=== PATIENT | male | born 1950 | race Caucasian/White ===

== ENCOUNTER 2017-08-21 10:29 | Emergency (ER) | payer OTHER ==
[~2017-08-21] VITALS: Ht 185.4 cm; Wt 103.9 kg
[~2017-08-21 10:29] MED LIST: PENICILLIN V P500 MG PO
[2017-08-21] MEDS ORDERED: LOPRESSOR25 PO (10:54)
[2017-08-21] MEDS ORDERED: ASPIR 8181 MG PO (10:55)
[2017-08-21] MEDS ORDERED: NORVASC10 MG PO (10:55)
[2017-08-21] MEDS ORDERED: GLUCOTROL5 MG PO (10:55)
[2017-08-21] MEDS ORDERED: ZESTORETIC 20-1 EAC3 PO (10:56)
[2017-08-21] MEDS ORDERED: KEFLEX500 M1 PO (12:16)
[2017-08-21 12:26] VITALS: BP 161/85
== END 2017-08-21 12:27 | disposition home or self-care (01) ==
LOC: M.ERS 10:29
DX: L72.3 Sebaceous cyst (principal); I10 Essential (primary) hypertension; E11.9 Type 2 diabetes mellitus without complications; Z88.5 Allergy status to narcotic agent; F17.210 Nicotine dependence, cigarettes, uncomplicated

== ENCOUNTER 2020-02-05 12:17 | Inpatient (IN) | payer OTHER ==
[2020-02-05] VITALS (12 sets, daily range): BP systolic 109–135; BP diastolic 59–76
[~2020-02-05] VITALS: Ht 188 cm; Wt 97.5 kg
--- NOTE | ~2020-02-05 | PROC ---
[address] [address] PROCEDURE REPORT Name: CHARLEY MUÑOZ Room: [address] IN M.R.#: [id number] Admission: 02/05/20 Attend Phys: Milagros Armenta Discharge: Date of : 46 Report #: [id number] THIS REPORT FOR: //name// cc: Gregory Hernandez MD, James MD ~ THIS REPORT FOR: //name// For GI report, please see the Provation report in Perceptive 7 content. By: [id number] Records Staff [facility] /TRAVIS
[~2020-02-05 12:17] MED LIST changes: +ASPIR 8181 MG PO; +GLUCOTROL5 MG PO; +KEFLEX500 M1 PO; +METOPROLOL TART25 MG PO; +NORVASC10 MG PO; +ZESTORETIC 20-1 EAC3 PO
[2020-02-05 12:48] LABS: HEMATOCRIT 50.5 % (42.0-52.0); MCH 28.9 pg (26.0-34.0); MCHC 33.5 g/dL (28.0-37.0); MCV 86.2 fL (80.0-100.0); MPV 9.1 fl. (7.2-11.1); NUCLEATED RBCS 0 /100WBC; PLATELET COUNT* 403 thou/uL (150-400); RBC 5.86 mil/uL (4.50-6.00); RDW-CV 14.9 % (10.5-14.5); WBC 20.6 thou/uL (4.0-11.0)
[2020-02-05 13:03] LABS: CALCIUM 9.6 mg/dL (8.5-10.1); CREATININE 1.2 mg/dL (0.6-1.3); POTASSIUM 3.5 mmol/L (3.5-5.1)
[2020-02-05 13:04] LABS: APTT 26.7 Seconds (25.0-31.3); PROTIME 10.3 Seconds (9.20-11.50)
[2020-02-05 13:14] LABS: ALBUMIN 2.3 g/dL (3.4-5.0); TOTAL BILIRUBIN 1.1 mg/dL (<0.1-1.0)
[2020-02-05 13:19] LABS: ABSOLUTE LYMPHOCYTES 1.4 thou/uL (0.8-5.3); ABSOLUTE NEUTROPHILS 18.1 thou/uL (1.6-8.1); ATYPICAL LYMPHS 2 %; PLATELET ESTIMATE ADEQUATE
[2020-02-05] MEDS ORDERED: XTAMPZA ER36 MG PO (14:41)
[2020-02-05 14:44] LABS: URINE BLOOD 1+ (Negative); URINE CLARITY CLEAR; URINE COLOR YELLOW; URINE GLUCOSE-RANDOM 2+ (Negative); URINE LEUKOCYTES-REFLEX NEGATIVE (Negative); URINE NITRITE-REFLEX NEGATIVE (Negative); URINE PROTEIN NEGATIVE (Negative); URINE UROBILINOGEN 0.2 E.U./dl (0.2-1.0)
[2020-02-05 14:47] LABS: ICTOTEST (BILI CONFIRMATORY) Negative (Negative); URINE BILIRUBIN 1+ (Negative); URINE KETONES 3+ (Negative)
[2020-02-05 14:51] LABS: SQUAMOUS 0-3 Few /LPF (0-3)
[2020-02-05 14:52] LABS: URINE WBC-REFLEX 0-5 Rare /HPF (0-5)
[2020-02-05 14:54] LABS: CASTS None Seen /LPF (None Seen); CRYSTALS None Seen /LPF (None Seen); MUCUS None Seen strn/LPF (None Seen); URINE RBC 0-2 Rare /HPF (0-2)
[2020-02-05 14:56] LABS: BE -11.1 mmol/L (-2 to +3); PCO2 VENOUS 29.5 mmHg (41.0-51.0); PO2 VENOUS 49.4 mmHg (35.0-45.0)
[2020-02-05 16:59] LABS: MAGNESIUM 2.3 mg/dL (1.8-2.4); PHOSPHORUS* 3.3 mg/dL (2.5-4.9)
[2020-02-05 18:01] LABS: CALCIUM 8.7 mg/dL (8.5-10.1)
[2020-02-05 21:36] LABS: CALCIUM 8.7 mg/dL (8.5-10.1)
[2020-02-05 21:39] LABS: PHOSPHORUS* 1.7 mg/dL (2.5-4.9)
[2020-02-06] VITALS (13 sets, daily range): BP systolic 121–165; BP diastolic 57–91
[2020-02-06 04:09] LABS: CALCIUM 8.2 mg/dL (8.5-10.1); CREATININE 0.9 mg/dL (0.6-1.3); PHOSPHORUS* 1.9 mg/dL (2.5-4.9); POTASSIUM 3.7 mmol/L (3.5-5.1)
[2020-02-06 08:42] LABS: ALBUMIN 1.9 g/dL (3.4-5.0); CALCIUM 8.6 mg/dL (8.5-10.1); CREATININE 0.9 mg/dL (0.6-1.3); PHOSPHORUS* 1.6 mg/dL (2.5-4.9)
[2020-02-06] MEDS ORDERED: OXYCODONE HCL E10 MG PO (10:37)
[2020-02-06] MEDS ORDERED: ROXICODONE30 MG PO (11:39)
--- NOTE | 2020-02-06 13:00 | EKG ---
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 : 1950 Requested By: Andrey Hamilton Order Number: [id number] MD: Yong Chamberlain Measurements Intervals [place] Rate: 106 P: 44 [place]: 146 QRS: 71 QRSD: 104 T: 60 QT: 371 QTc: 493 Interpretive Statements Sinus tachycardia Probable inferior infarct, age indeterminate Baseline wander in lead(s) III,aVF No previous ECG available for comparison Electronically Signed On 02-06-2020 13:00:24 CDT by Yong Chamberlain [email or web address] <ELECTRONICALLY SIGNED> By: Yong Chamberlain MD, FACC 02/06/20 1300 1227 1227 Yong Chamberlain MD, FAC /EPI
[2020-02-07] VITALS: BP 127/60
[2020-02-07 04:00] VITALS: BP 142/74
[2020-02-07 04:16] LABS: ABSOLUTE LYMPHOCYTES 1.2 thou/uL (0.8-5.3); ABSOLUTE MONOCYTES 0.8 thou/uL (0.0-1.2); ABSOLUTE NEUTROPHILS 6.9 thou/uL (1.6-8.1); BASOPHILS 0.3 %; HEMATOCRIT 44.7 % (42.0-52.0); LYMPHOCYTES 13.2 %; MCH 28.7 pg (26.0-34.0); MCHC 33.5 g/dL (28.0-37.0); MCV 85.8 fL (80.0-100.0); MONOCYTES 9.1 %; MPV 9.2 fl. (7.2-11.1); NUCLEATED RBCS 0 /100WBC; POLYS 77.4 %; RBC 5.21 mil/uL (4.50-6.00); RDW-CV 15.2 % (10.5-14.5)
[2020-02-07 04:39] LABS: PLATELET COUNT* 318 thou/uL (150-400)
[2020-02-07 06:05] LABS: ALBUMIN 1.7 g/dL (3.4-5.0); ALKALINE PHOSPHATASE 82 U/L (46-116); ANION GAP 12 mmol/L (7-16); BUN 16 mg/dL (7-18); CALCIUM 8.3 mg/dL (8.5-10.1); CHLORIDE 100 mmol/L (98-107); CO2 20 mmol/L (21-32); CREATININE 0.8 mg/dL (0.6-1.3); GLUCOSE 223 mg/dL (70-99); PHOSPHORUS* 2.4 mg/dL (2.5-4.9); POTASSIUM 3.6 mmol/L (3.5-5.1); SGOT 25 U/L (15-37); SGPT 28 U/L (30-65); SODIUM 132 mmol/L (136-145); TOTAL BILIRUBIN 0.7 mg/dL (<0.1-1.0); TOTAL PROTEIN 5.4 g/dL (6.4-8.2)
[2020-02-07 07:30] VITALS: BP 126/53
[2020-02-07 10:02] LABS: CHOLESTEROL 65 mg/dL (<200); HDL CHOLESTEROL 15 mg/dL (>40); LDL CHOLESTEROL 33 mg/dL (<100); TC:HDL 4.3 Ratio (Not establshd); TRIGLYCERIDE 86 mg/dL (<150); VLDL 17 mg/dL (<40)
[2020-02-07 10:03] LABS: SERUM ASSESSMENT Clear
[2020-02-07 12:00] VITALS: BP 105/48
--- NOTE | 2020-02-07 14:20 | EKG ---
[place] [address] ELECTROCARDIOGRAM REPORT Name: ALIDACHARLEY LIU Room: [address] ADM IN M.R.#: [id number] Admission: 02/05/20 Attend Phys: Senait Jay Discharge: Date of : 46 Date of Service: 02/06/20 1425 Report #: [id number] THIS REPORT FOR: //name// [facility] Test Date: 2020-02-06 Test Time: 14:25:37 Pat Name: CHARLEY MUÑOZ Department: Room: [address] Gender: M Registration Rep: STUART : 1950 Requested By: Senait Jay Order Number: [id number] Ariane MD: John Jack Measurements Intervals [place] Rate: 118 P: 1 [place]: 145 QRS: 32 QRSD: 86 T: 59 QT: 345 QTc: 484 Interpretive Statements Sinus tachycardia Low voltage, precordial leads Possible inferior and anterior scars Borderline prolonged QT interval Compared to ECG 02/05/2020 12:27:10 Low QRS voltage now present Myocardial infarct finding persists Electronically Signed On 02-07-2020 14:20:07 CDT by Jhon Jack [email or web address] <ELECTRONICALLY SIGNED> By: John Jack MD, [facility] 02/07/20 1420 1425 1425 John Jack MD, FAC /EPI
[2020-02-07 16:00] VITALS: BP 104/53
--- NOTE | 2020-02-07 16:09 | 2DMMODE ---
[place] [address] 2 D/M-MODE ECHOCARDIOGRAM Name: CHARLEY MUÑOZ Room: [address] IN M.R.#: [id number] Admission: 02/05/20 Attend Phys: Senait Jay Discharge: Date of : 46 Date of Service: 02/07/20 1609 Report #: [id number] THIS REPORT FOR: cc: Gregory Hernandez MD, James MD Holkins,John Shields MD [facility] ~ APPROVED REPORT Study performed: 02/07/2020 13:45:03 EXAM: Comprehensive 2D, Doppler, and color-flow Echocardiogram Patient Location: Out-Patient BSA: 2.08 HR: 80 bpm BP: 126/53 mmHg Other Information Study Quality: Fair Indications Abnormal ECG 2D Dimensions IVSd: 10.93 (7-11mm) LVOT Diam: 20.80 (18-24mm) LVDd: 38.10 mm PWd: 11.48 (7-11mm) Ascending Ao: 33.37 (22-36mm) LVDs: 25.05 (25-40mm) Aortic Root: 34.23 mm Volumes Left Atrial Volume (Systole) LA ESV Index: 17.70 mL/m2 Aortic Valve AoV Peak Dave.: 1.01 m/s AO Peak Gr.: 4.12 mmHg LVOT Max P.62 mmHg AO Mean Gr.: 2.50 mmHg LVOT Mean P.56 mmHg LVOT Max V: 1.19 m/s AO V2 VTI: 19.57 cm LVOT Mean V: 0.72 m/s YOLY (VTI): 3.38 cm2 LVOT V1 VTI: 19.48 cm Mitral Valve E/A Ratio: 0.55 [place] [address] 2 D/M-MODE ECHOCARDIOGRAM Name: CHARLEY MUÑOZ Room: [address] IN .R.#: [id number] Admission: 02/05/20 Attend Phys: Senait Jay Discharge: Date of : 46 Date of Service: 02/07/20 1609 Report #: [id number] Decel. Time: 308.72 ms MV E Max Dave.: 0.49 m/s MV PHT: 89.53 ms MVA (PHT): 2.46 cm2 TDI E/Lateral E': 5.44 E/Medial E': 8.17 Medial E' Dave.: 0.06 m/s Lateral E' Dave.: 0.09 m/s Pulmonary Valve PV Peak Dave.: 1.01 m/s PV Peak Gr.: 4.12 mmHg Left Ventricle The left ventricle is normal size. There is normal LV segmental wall motion. There is normal left ventricular wall thickness. Left ventricular systolic function is normal. The left ventricular ejection fraction is within the normal range. LVEF is 60%. Grade I - abnormal relaxation pattern. Right Ventricle The right ventricle is normal size. The right ventricular systolic function is normal. Atria The left atrium size is normal. The right atrium size is normal. Aortic Valve Moderate aortic valve sclerosis. Trace aortic regurgitation. There is no aortic valvular stenosis. Mitral Valve Mild mitral annular calcification. There is no mitral valve regurgitation noted. No evidence of mitral valve stenosis. Tricuspid Valve The tricuspid valve is normal in structure. There is no tricuspid valve regurgitation noted. Pulmonic Valve The pulmonary valve is normal in structure. There is no pulmonic valvular regurgitation. Great Vessels The aortic root is normal in size. IVC [place] [address] 2 D/M-MODE ECHOCARDIOGRAM Name: CHARLEY MUÑOZ Room: [address] IN [facility]#: [id number] Admission: 02/05/20 Attend Phys: Senait Jay Discharge: Date of : 46 Date of Service: 02/07/20 1609 Report #: [id number] collapses >50% with inspiration. Pericardium There is no pericardial effusion. <Conclusion> The left ventricle is normal size. Left ventricular systolic function is normal. The left ventricular ejection fraction is within the normal range. LVEF is 60%. Grade I - abnormal relaxation pattern. The right ventricle is normal size. The left atrium size is normal. Moderate aortic valve sclerosis. Trace aortic regurgitation. There is no aortic valvular stenosis. Mild mitral annular calcification. There is no mitral valve regurgitation noted. No evidence of mitral valve stenosis. The tricuspid valve is normal in structure. IVC is normal in size and collapses >50% with inspiration. There is no pericardial effusion. There is normal LV segmental wall motion. <ELECTRONICALLY SIGNED> By: John Jack MD, FACC 02/07/20 1609 1609 1609 John Jack MD, FACC /INF
[2020-02-07 20:00] VITALS: BP 110/64
[2020-02-08] VITALS (7 sets, daily range): BP systolic 101–149; BP diastolic 53–68
[2020-02-08 04:50] LABS: ABSOLUTE LYMPHOCYTES 1.1 thou/uL (0.8-5.3); ABSOLUTE MONOCYTES 0.9 thou/uL (0.0-1.2); BASOPHILS 0.1 %; EOSINOPHILS 0.3 %; HEMATOCRIT 44.2 % (42.0-52.0); LYMPHOCYTES 8.2 %; MCH 28.9 pg (26.0-34.0); MCHC 33.9 g/dL (28.0-37.0); MCV 85.3 fL (80.0-100.0); MONOCYTES 7.3 %; MPV 9.3 fl. (7.2-11.1); NUCLEATED RBCS 0 /100WBC; PLATELET COUNT* 307 thou/uL (150-400); POLYS 84.1 %; RBC 5.18 mil/uL (4.50-6.00); RDW-CV 14.8 % (10.5-14.5)
[2020-02-08 05:11] LABS: ALBUMIN 1.4 g/dL (3.4-5.0); CALCIUM 8.1 mg/dL (8.5-10.1); CREATININE 0.7 mg/dL (0.6-1.3); POTASSIUM 3.3 mmol/L (3.5-5.1); TOTAL BILIRUBIN 0.5 mg/dL (<0.1-1.0); TOTAL PROTEIN 5.1 g/dL (6.4-8.2)
[2020-02-08 05:20] LABS: PREALBUMIN 6.1 mg/dL (18.0-35.7)
[2020-02-08 05:35] LABS: URINE BILIRUBIN NEGATIVE (Negative); URINE BLOOD NEGATIVE (Negative); URINE CLARITY CLEAR; URINE COLOR YELLOW; URINE GLUCOSE-RANDOM 2+ (Negative); URINE KETONES 1+ (Negative); URINE LEUKOCYTES NEGATIVE (Negative); URINE NITRITE NEGATIVE (Negative); URINE PROTEIN TRACE (Negative); URINE SPECIFIC GRAVITY 1.025 (1.005-1.030); URINE UROBILINOGEN 0.2 E.U./dl (0.2-1.0)
--- NOTE | 2020-02-08 14:37 | CON ---
[address] [address] CONSULTATION Name: CHARLEY MUÑOZ Room: [address] IN M.R.#: [id number] Admission: 02/05/20 Attend Phys: Milagros Armenta Discharge: Date of : 46 Report #: [id number] THIS REPORT FOR: //name// cc: Gregory Hernandez MD, James MD THIS REPORT FOR: //name// CC: Gregory Jay DICTATED BY: Sarika Hernandez [facility] DATE OF SERVICE: 02/08/2020 Please note at the time of this dictation, the patient was seen and physically examined by myself. REASON FOR CONSULTATION: Dysphagia. HISTORY OF PRESENT ILLNESS: This 69-year-old male who presented to the Emergency Room after a 1-day history of increased weakness and after he fell, he noticed a large abscess on his back that started to drain some purulent drainage that was foul smelling, which noted that he had gram-positive cocci and he has been on antibiotics. In talking with the patient, he states he has had a 30-pound weight loss over the last several months. He has had some difficulty with swallowing and pain with both solids and liquids. He states it feels like something is getting stuck in his chest. He has never seen a fabrication inspector or had an EGD or a colonoscopy done before. He states also he has had a loss of appetite and that he does have issues with constipation, which he normally goes about every 4-5 days and does not take anything for that. He denies any nausea, vomiting or any bright red blood or melena in his stools. ALLERGIES: MORPHINE AND FENTANYL. MEDICATIONS: From home include oxycodone, Zestoretic, Norvasc, aspirin, Glucotrol and metoprolol. PAST MEDICAL HISTORY: Hypertension, diabetes. PAST SURGICAL HISTORY: Negative. FAMILY HISTORY: Negative. SOCIAL HISTORY: Continues to smoke daily. Denies any alcohol [place] [address] CONSULTATION Name: CHARLEY MUÑOZ Room: [address] IN [facility]#: [id number] Admission: 02/05/20 Attend Phys: Milagros Armenta Discharge: Date of : 46 Report #: [id number] REVIEW OF SYSTEMS: Twelve-point review of systems is essentially negative except what is mentioned in the HPI. PHYSICAL EXAMINATION: VITAL SIGNS: Temperature 36.4, pulse 96, respirations 16, blood pressure 131/68. HEART: Regular rate and rhythm. LUNGS: Diminished, but clear. ABDOMEN: Soft, positive bowel sounds in all 4 quadrants with no masses or tenderness noted. LABORATORY DATA: Hemoglobin is 15, white count is 13.8, platelets 307. GFR is 111. CRP is 21.2. LFTs, total bilirubin 0.5, alkaline phosphatase 80, ALT 53, and AST is 76. IMPRESSION: 1. Dysphagia. 2. Odynophagia. 3. Weight loss. 4. Decreased appetite. 5. Constipation. 6. Leukocytosis. 7. Tobacco use. PLAN: 1. EGD tomorrow with Dr. Loja. 2. MiraLax daily. 3. Further recommendations to be made after the procedure has been performed. Thank you for allowing us to participate in this patient's care. Please do not hesitate to call with any questions in regard to this consult. Agree with above assessment and plan by Sarika Hernandez. <ELECTRONICALLY SIGNED> By: Zelalem Loja MD 02/08/20 1437 1011 1023Zelalem Loja MD /nt
[2020-02-09 04:00] VITALS: BP 105/63
[2020-02-09 04:45] LABS: ABSOLUTE EOSINOPHILS 0.1 thou/uL (0.0-0.7); ABSOLUTE LYMPHOCYTES 1.3 thou/uL (0.8-5.3); ABSOLUTE MONOCYTES 1.5 thou/uL (0.0-1.2); ABSOLUTE NEUTROPHILS 13.8 thou/uL (1.6-8.1); BASOPHILS 0.3 %; CALCIUM 8.2 mg/dL (8.5-10.1); CREATININE 0.7 mg/dL (0.6-1.3); EOSINOPHILS 0.7 %; HEMATOCRIT 41.4 % (42.0-52.0); HEMOGLOBIN 13.9 gm/dL (14.0-18.0); LYMPHOCYTES 7.8 %; MAGNESIUM 1.5 mg/dL (1.8-2.4); MCH 28.6 pg (26.0-34.0); MCHC 33.5 g/dL (28.0-37.0); MCV 85.4 fL (80.0-100.0); MPV 9.4 fl. (7.2-11.1); NUCLEATED RBCS 0 /100WBC; PHOSPHORUS* 2.7 mg/dL (2.5-4.9); PLATELET COUNT* 330 thou/uL (150-400); POLYS 82.2 %; POTASSIUM 4.2 mmol/L (3.5-5.1); RBC 4.85 mil/uL (4.50-6.00); RDW-CV 15.3 % (10.5-14.5); WBC 16.7 thou/uL (4.0-11.0)
[2020-02-09 08:00] VITALS: BP 107/53
[2020-02-09 11:21] VITALS: BP 103/57
[2020-02-09 16:16] VITALS: BP 111/61
[2020-02-09] MEDS ORDERED: LIPITOR10 MG PO (18:15)
[2020-02-09] MEDS ORDERED: METFORMIN HCL500 M3 PO (18:18)
[2020-02-09] MEDS ORDERED: METFORMIN HCL500 MG PO (18:19)
[2020-02-09 20:10] VITALS: BP 101/57
[2020-02-10] VITALS: BP 106/68
[2020-02-10 04:00] VITALS: BP 104/64
[2020-02-10 05:08] LABS: ABSOLUTE BASOPHILS 0.1 thou/uL (0.0-0.2); ABSOLUTE EOSINOPHILS 0.1 thou/uL (0.0-0.7); ABSOLUTE LYMPHOCYTES 2.1 thou/uL (0.8-5.3); ABSOLUTE MONOCYTES 1.1 thou/uL (0.0-1.2); ABSOLUTE NEUTROPHILS 13.7 thou/uL (1.6-8.1); BASOPHILS 0.3 %; EOSINOPHILS 0.4 %; HEMATOCRIT 47.9 % (42.0-52.0); LYMPHOCYTES 12.3 %; MCH 28.6 pg (26.0-34.0); MCHC 33.2 g/dL (28.0-37.0); MCV 86.3 fL (80.0-100.0); MONOCYTES 6.4 %; MPV 9.2 fl. (7.2-11.1); NUCLEATED RBCS 0 /100WBC; POLYS 80.6 %; RBC 5.55 mil/uL (4.50-6.00); RDW-CV 15.6 % (10.5-14.5)
[2020-02-10 05:37] LABS: HEMOGLOBIN 15.9 gm/dL (14.0-18.0); PLATELET COUNT* 416 thou/uL (150-400)
[2020-02-10 05:57] LABS: ALBUMIN 1.4 g/dL (3.4-5.0); CALCIUM 8.2 mg/dL (8.5-10.1); CREATININE 0.6 mg/dL (0.6-1.3); POTASSIUM 4.1 mmol/L (3.5-5.1); TOTAL BILIRUBIN 0.5 mg/dL (<0.1-1.0); TOTAL PROTEIN 5.5 g/dL (6.4-8.2)
[2020-02-10 08:15] VITALS: BP 137/72
[2020-02-10 12:30] VITALS: BP 122/66
[2020-02-10 15:56] VITALS: BP 109/55
[2020-02-10 21:05] VITALS: BP 129/74
[2020-02-11 00:26] VITALS: BP 111/56
[2020-02-11 03:45] VITALS: BP 125/70
[2020-02-11 06:30] LABS: ALBUMIN 1.3 g/dL (3.4-5.0); CALCIUM 8.1 mg/dL (8.5-10.1); CREATININE 0.8 mg/dL (0.6-1.3); POTASSIUM 4.3 mmol/L (3.5-5.1); TOTAL BILIRUBIN 0.4 mg/dL (<0.1-1.0); TOTAL PROTEIN 4.4 g/dL (6.4-8.2)
[2020-02-11 06:34] LABS: ABSOLUTE EOSINOPHILS 0.1 thou/uL (0.0-0.7); ABSOLUTE LYMPHOCYTES 2.2 thou/uL (0.8-5.3); ABSOLUTE MONOCYTES 1.7 thou/uL (0.0-1.2); ABSOLUTE NEUTROPHILS 11.8 thou/uL (1.6-8.1); BASOPHILS 0.2 %; EOSINOPHILS 0.7 %; HEMATOCRIT 43.9 % (42.0-52.0); HEMOGLOBIN 14.7 gm/dL (14.0-18.0); LYMPHOCYTES 14.1 %; MCH 28.6 pg (26.0-34.0); MCHC 33.4 g/dL (28.0-37.0); MCV 85.8 fL (80.0-100.0); MONOCYTES 10.4 %; MPV 8.5 fl. (7.2-11.1); NUCLEATED RBCS 0 /100WBC; PLATELET COUNT* 469 thou/uL (150-400); POLYS 74.6 %; RBC 5.12 mil/uL (4.50-6.00); RDW-CV 15.6 % (10.5-14.5); WBC 15.8 thou/uL (4.0-11.0)
[2020-02-11 07:30] VITALS: BP 95/50
[2020-02-11 12:06] VITALS: BP 106/63
[2020-02-11 16:58] VITALS: BP 95/57
[2020-02-11 20:24] VITALS: BP 107/50
[2020-02-12] VITALS: BP 101/66
[2020-02-12 04:00] VITALS: BP 107/51
[2020-02-12 04:38] LABS: ABSOLUTE BASOPHILS 0.1 thou/uL (0.0-0.2); ABSOLUTE EOSINOPHILS 0.1 thou/uL (0.0-0.7); ABSOLUTE LYMPHOCYTES 2.2 thou/uL (0.8-5.3); ABSOLUTE MONOCYTES 1.5 thou/uL (0.0-1.2); ABSOLUTE NEUTROPHILS 12.8 thou/uL (1.6-8.1); BASOPHILS 0.4 %; EOSINOPHILS 0.3 %; LYMPHOCYTES 13.2 %; MCH 28.2 pg (26.0-34.0); MCHC 33.3 g/dL (28.0-37.0); MCV 84.7 fL (80.0-100.0); MPV 8.4 fl. (7.2-11.1); NUCLEATED RBCS 0 /100WBC; PLATELET COUNT* 520 thou/uL (150-400); POLYS 77.1 %; RBC 4.96 mil/uL (4.50-6.00); RDW-CV 15.3 % (10.5-14.5); WBC 16.6 thou/uL (4.0-11.0)
[2020-02-12 05:11] LABS: ALBUMIN 1.4 g/dL (3.4-5.0); CALCIUM 7.9 mg/dL (8.5-10.1); CREATININE 0.7 mg/dL (0.6-1.3); MAGNESIUM 1.4 mg/dL (1.8-2.4); POTASSIUM 3.6 mmol/L (3.5-5.1); TOTAL BILIRUBIN 0.5 mg/dL (<0.1-1.0)
[2020-02-12 07:30] VITALS: BP 118/62
[2020-02-12 12:53] VITALS: BP 101/56
[2020-02-12 18:04] VITALS: BP 108/57
[2020-02-12 21:00] VITALS: BP 120/59
[2020-02-13 04:00] VITALS: BP 106/55
[2020-02-13 04:39] LABS: HEMATOCRIT 41.9 % (42.0-52.0); MCH 28.6 pg (26.0-34.0); MCHC 33.5 g/dL (28.0-37.0); MCV 85.4 fL (80.0-100.0); MPV 7.9 fl. (7.2-11.1); RBC 4.9 mil/uL (4.50-6.00); RDW-CV 15.4 % (10.5-14.5); WBC 15.5 thou/uL (4.0-11.0)
[2020-02-13 04:57] LABS: ALBUMIN 1.5 g/dL (3.4-5.0); CREATININE 0.7 mg/dL (0.6-1.3); MAGNESIUM 1.5 mg/dL (1.8-2.4); POTASSIUM 3.7 mmol/L (3.5-5.1); TOTAL BILIRUBIN 0.4 mg/dL (<0.1-1.0); TOTAL PROTEIN 5.3 g/dL (6.4-8.2)
[2020-02-13 07:30] VITALS: BP 111/53
[2020-02-13 11:40] VITALS: BP 100/59
[2020-02-13 16:00] VITALS: BP 104/62
[2020-02-13 20:09] VITALS: BP 112/64
[2020-02-14] VITALS: BP 97/58
[2020-02-14 04:00] VITALS: BP 100/55
[2020-02-14 06:50] LABS: ABSOLUTE BASOPHILS 0.1 thou/uL (0.0-0.2); ABSOLUTE EOSINOPHILS 0.1 thou/uL (0.0-0.7); ABSOLUTE MONOCYTES 1.4 thou/uL (0.0-1.2); ABSOLUTE NEUTROPHILS 11.7 thou/uL (1.6-8.1); BASOPHILS 0.4 %; EOSINOPHILS 0.5 %; HEMOGLOBIN 13.9 gm/dL (14.0-18.0); LYMPHOCYTES 13.1 %; MCH 28.5 pg (26.0-34.0); MCHC 33.1 g/dL (28.0-37.0); MONOCYTES 8.9 %; MPV 7.9 fl. (7.2-11.1); NUCLEATED RBCS 0 /100WBC; PLATELET COUNT* 658 thou/uL (150-400); POLYS 77.1 %; RBC 4.89 mil/uL (4.50-6.00); RDW-CV 15.4 % (10.5-14.5); WBC 15.2 thou/uL (4.0-11.0)
[2020-02-14 07:00] LABS: ALBUMIN 1.5 g/dL (3.4-5.0); CALCIUM 7.7 mg/dL (8.5-10.1); CREATININE 0.8 mg/dL (0.6-1.3); POTASSIUM 4.5 mmol/L (3.5-5.1); TOTAL BILIRUBIN 0.4 mg/dL (<0.1-1.0); TOTAL PROTEIN 5.4 g/dL (6.4-8.2)
[2020-02-14 08:00] VITALS: BP 107/63
[2020-02-14 09:08] LABS: INR 1.1; PROTIME 11.1 Seconds (9.20-11.50)
[2020-02-14 12:35] VITALS: BP 117/56
[2020-02-14 16:57] VITALS: BP 92/54
[2020-02-14 19:50] VITALS: BP 113/51
[2020-02-15] VITALS (7 sets, daily range): BP systolic 97–118; BP diastolic 57–93
[2020-02-15 04:55] LABS: ABSOLUTE EOSINOPHILS 0.1 thou/uL (0.0-0.7); ABSOLUTE LYMPHOCYTES 2.2 thou/uL (0.8-5.3); ABSOLUTE MONOCYTES 1.2 thou/uL (0.0-1.2); ABSOLUTE NEUTROPHILS 12.6 thou/uL (1.6-8.1); BASOPHILS 0.1 %; EOSINOPHILS 0.5 %; HEMATOCRIT 41.8 % (42.0-52.0); LYMPHOCYTES 13.9 %; MCH 28.6 pg (26.0-34.0); MCHC 33.6 g/dL (28.0-37.0); MCV 85.1 fL (80.0-100.0); MONOCYTES 7.6 %; MPV 7.7 fl. (7.2-11.1); NUCLEATED RBCS 0 /100WBC; POLYS 77.9 %; RBC 4.92 mil/uL (4.50-6.00); RDW-CV 15.4 % (10.5-14.5); WBC 16.2 thou/uL (4.0-11.0)
[2020-02-15 04:59] LABS: PLATELET COUNT* 767 thou/uL (150-400)
[2020-02-15 05:16] LABS: ALBUMIN 1.7 g/dL (3.4-5.0); CREATININE 0.8 mg/dL (0.6-1.3); MAGNESIUM 1.4 mg/dL (1.8-2.4); TOTAL BILIRUBIN 0.4 mg/dL (<0.1-1.0); TOTAL PROTEIN 5.7 g/dL (6.4-8.2)
[2020-02-16] VITALS: BP 110/54
[2020-02-16 04:00] VITALS: BP 120/65
[2020-02-16 05:03] LABS: HEMATOCRIT 39.6 % (42.0-52.0); HEMOGLOBIN 13.5 gm/dL (14.0-18.0); MCV 85.3 fL (80.0-100.0); MPV 7.3 fl. (7.2-11.1); RBC 4.65 mil/uL (4.50-6.00); RDW-CV 14.8 % (10.5-14.5); WBC 14.4 thou/uL (4.0-11.0)
[2020-02-16 05:25] LABS: ALBUMIN 1.6 g/dL (3.4-5.0); CALCIUM 7.9 mg/dL (8.5-10.1); CREATININE 0.5 mg/dL (0.6-1.3); MAGNESIUM 1.5 mg/dL (1.8-2.4); TOTAL BILIRUBIN 0.3 mg/dL (<0.1-1.0); TOTAL PROTEIN 5.3 g/dL (6.4-8.2)
[2020-02-16 08:00] VITALS: BP 164/72
[2020-02-16 12:16] VITALS: BP 92/62
[2020-02-16] MEDS ORDERED: FLUCONAZOLE 10100 MG PO (16:34)
[2020-02-16] MEDS ORDERED: PROTONIX40 M2 PO (16:34)
[2020-02-16] MEDS ORDERED: CARAFATE 11 GM/10 M1 PO (16:34)
[2020-02-16] MEDS ORDERED: CEFDINIR300 MG PO (16:57)
[2020-02-16 17:19] VITALS: BP 92/62
--- NOTE | 2020-02-17 16:06 | PATH ---
[address] [address] PATHOLOGY RPT PROCEDURE Name: CHARLEY MEZA Room: [address] IN M.R.#: [id number] Admission: 02/05/20 Date of : 46 Discharge: 02/16/20 Report #: [id number] Path Case #: [id number] [facility] Accession Number: [id number] . 01 Material submitted: . PART A: duodenum - H. PYLORI FOR DUODENAL ULCERS PART B: esophagus - ESOPHAGEAL BIOPSY AT 35CM FOR SEVERE ESOPHAGITIS R/O CANIDIDA . 01 Clinical history: . SEPIS, ALTERED MS, WEAKNESS, ARF, HYPONATREMIA . 02 Diagnosis: A. Tissue submitted as "H. pylori for duodenal ulcers": - Mild nonspecific chronic antral gastritis, negative for Helicobacter pylori organisms, granulomas and dysplasia. . B. Esophageal biopsy at 35 cm (for esophagitis, R/O meenu): - Severe active esophagitis with ulceration compatible with ulcerative reflux, negative for granulomas, viral inclusions, fungal elements and high-grade dysplasia. (VERITO:barrera; 02/17/2020) . Special stain on B: GMS Special stain on A: H. pylori immuno QMS 02/17/2020 1310 [facility] . 02 Electronically signed: . Kevon Kee MD, Pathologist NPI- [id number] . 01 Gross description: . A. The specimen is received in formalin, labeled "Charley Meza, H. pylori biopsy for duodenal ulcers". Received is a segment of pale bahena soft tissue measuring 0.4 cm in maximum dimensions. The specimen is submitted entirely in cassette A1. . B. The specimen is received in formalin, labeled "Charley Meza, esophageal biopsy at 35 cm for esophagitis, R/O meenu". Received are two segments of pale bahena soft tissue ranging in size from 0.3 to 0.7 cm in maximum dimensions. The specimen is submitted entirely in cassette B1. (CAA; 02/15/2020) QAC/QAC 02/15/2020 1012 Local . 02 Pathologist provided ICD-10: K29.50, K20.80, K22.10 . [address] [facility] [place] [address] PATHOLOGY RPT PROCEDURE Name: CHARLEY MEZA Room: [address] DIS IN M.R.#: [id number] Admission: 02/05/20 Date of : 46 Discharge: 02/16/20 Report #: [id number] Path Case #: [id number] Specimen Comment: A courtesy copy of this report has been sent to [phone] Specimen Comment: [phone] Specimen Comment: Report sent to / DR HOSKINS Performed at: [address] [facility] [address], [place], [place] [address] MD Lauri Judd MD Phone: [phone] Performed at: 02 [facility] [address], [place], [place] [address] MD Kevon Kee MD Phone: [phone]
== END 2020-02-16 18:00 | disposition home health service (06) | DRG 871 ==
LOC: M.ERS 12:17 → M.TBA-ER 14:31 → M.ICU 14:31 → M.2W 14:31 → M.ICU 18:43 → M.2W 02-06 13:40
PROVIDERS: Family Medicine; Internal Medicine; Internal Medicine Gastroenterology; Nurse Practitioner Adult Health; Registered Nurse; Surgery; ADMIT Internal Medicine; ATTEND Internal Medicine
DX: A40.9 Streptococcal sepsis, unspecified (principal); E11.10 Type 2 diabetes mellitus with ketoacidosis without coma; N17.0 Acute kidney failure with tubular necrosis; G93.41 Metabolic encephalopathy; E87.1 Hypo-osmolality and hyponatremia; K82.A2 Perforation of gallbladder in cholecystitis; B37.81 Candidal esophagitis; E83.42 Hypomagnesemia; R63.4 Abnormal weight loss; K44.9 Diaphragmatic hernia without obstruction or gangrene; K26.9 Duodenal ulcer, unspecified as acute or chronic, without hemorrhage or perforation; R13.14 Dysphagia, pharyngoesophageal phase; R12 Heartburn; K21.00 Gastro-esophageal reflux disease with esophagitis, without bleeding; L72.0 Epidermal cyst; Z20.828 Contact with and (suspected) exposure to other viral communicable diseases; Z79.84 Long term (current) use of oral hypoglycemic drugs; Z79.899 Other long term (current) drug therapy; Z79.82 Long term (current) use of aspirin; Z88.5 Allergy status to narcotic agent; Z88.8 Allergy status to other drugs, medicaments and biological substances; Z68.27 Body mass index [BMI] 27.0-27.9, adult

== ENCOUNTER 2020-02-21 19:31 | Inpatient (IN) | payer OTHER ==
[~2020-02-21] VITALS: Ht 185.4 cm; Wt 91.2 kg
[~2020-02-21 19:31] MED LIST changes: +CARAFATE 11 GM/10 M1 PO; +CEFDINIR300 MG PO; +FLUCONAZOLE 10100 MG PO; +LIPITOR10 MG PO; +METFORMIN HCL500 M3 PO; +METFORMIN HCL500 MG PO; +OXYCODONE HCL E10 MG PO; +PROTONIX40 M2 PO; +ROXICODONE30 MG PO; +XTAMPZA ER36 MG PO
[2020-02-21 20:17] LABS: ABSOLUTE EOSINOPHILS 0.1 thou/uL (0.0-0.7); ABSOLUTE LYMPHOCYTES 2.3 thou/uL (0.8-5.3); ABSOLUTE MONOCYTES 1.1 thou/uL (0.0-1.2); ABSOLUTE NEUTROPHILS 7.9 thou/uL (1.6-8.1); BASOPHILS 0.2 %; EOSINOPHILS 0.7 %; HEMATOCRIT 39.6 % (42.0-52.0); LYMPHOCYTES 19.9 %; MCHC 32.9 g/dL (28.0-37.0); MONOCYTES 9.9 %; NUCLEATED RBCS 0 /100WBC; PLATELET COUNT* 634 thou/uL (150-400); POLYS 69.3 %; RBC 4.65 mil/uL (4.50-6.00); RDW-CV 15.1 % (10.5-14.5); WBC 11.5 thou/uL (4.0-11.0)
[2020-02-21 20:18] VITALS: BP 75/48
[2020-02-21 20:25] LABS: CALCIUM 8.7 mg/dL (8.5-10.1); CREATININE 2.3 mg/dL (0.6-1.3); POTASSIUM 4.5 mmol/L (3.5-5.1)
[2020-02-21 20:30] LABS: ALBUMIN 2.3 g/dL (3.4-5.0); TOTAL BILIRUBIN 0.3 mg/dL (<0.1-1.0); TOTAL PROTEIN 6.6 g/dL (6.4-8.2)
[2020-02-22] VITALS (13 sets, daily range): BP systolic 93–125; BP diastolic 49–477
[2020-02-22 05:49] LABS: MCHC 32.5 g/dL (28.0-37.0); MCV 86.4 fL (80.0-100.0); MPV 6.8 fl. (7.2-11.1); NUCLEATED RBCS 0 /100WBC; RBC 4.63 mil/uL (4.50-6.00); RDW-CV 15.2 % (10.5-14.5)
[2020-02-22 05:50] LABS: PLATELET COUNT* 447 thou/uL (150-400)
[2020-02-22 06:37] LABS: ABSOLUTE LYMPHOCYTES 1.1 thou/uL (0.8-5.3); ABSOLUTE MONOCYTES 0.3 thou/uL (0.0-1.2); ABSOLUTE NEUTROPHILS 12.6 thou/uL (1.6-8.1); ATYPICAL LYMPHS 1 %; PLATELET ESTIMATE ADEQUATE
[2020-02-22 06:38] LABS: MICROCYTES 1+; TOXIC GRANULATION 2+
[2020-02-22 07:16] LABS: CREATININE 1.9 mg/dL (0.6-1.3); POTASSIUM 4.1 mmol/L (3.5-5.1); TOTAL BILIRUBIN 0.3 mg/dL (<0.1-1.0); TOTAL PROTEIN 6.2 g/dL (6.4-8.2)
[2020-02-22 07:27] LABS: URINE BILIRUBIN NEGATIVE (Negative); URINE BLOOD NEGATIVE (Negative); URINE CLARITY CLEAR; URINE COLOR YELLOW; URINE GLUCOSE-RANDOM NEGATIVE (Negative); URINE KETONES NEGATIVE (Negative); URINE LEUKOCYTES-REFLEX NEGATIVE (Negative); URINE NITRITE-REFLEX NEGATIVE (Negative); URINE PROTEIN NEGATIVE (Negative); URINE SPECIFIC GRAVITY >= 1.030 (1.005-1.030); URINE UROBILINOGEN 0.2 E.U./dl (0.2-1.0)
[2020-02-22 09:47] LABS: CALCIUM 7.7 mg/dL (8.5-10.1); CREATININE 1.7 mg/dL (0.6-1.3); POTASSIUM 3.9 mmol/L (3.5-5.1)
[2020-02-22 09:50] LABS: MAGNESIUM 1.6 mg/dL (1.8-2.4); PHOSPHORUS* 6.3 mg/dL (2.5-4.9)
--- NOTE | 2020-02-22 15:53 | EKG ---
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 : 1950 Requested By: Sandoval Millard Order Number: [id number] MD: John Jack Measurements Intervals [place] Rate: 78 P: 59 ME: 162 QRS: 56 QRSD: 95 T: 78 QT: 395 QTc: 450 Interpretive Statements Sinus rhythm Low voltage, extremity leads Minimal ST elevation, inferior and anterolateral leads, suggest early repolarization Compared to ECG 02/06/2020 14:25:37 ST (T wave) deviation now present Sinus tachycardia no longer present Electronically Signed On 02-22-2020 15:52:53 CDT by John Jack [email or web address] <ELECTRONICALLY SIGNED> By: John Jack MD, FACC 02/22/20 1552 12 12 John Jack MD, FACC /EPI
[2020-02-23] VITALS (7 sets, daily range): BP systolic 79–124; BP diastolic 45–72
[2020-02-23 04:49] LABS: HEMATOCRIT 36.9 % (42.0-52.0); MCH 27.5 pg (26.0-34.0); MCHC 32.6 g/dL (28.0-37.0); MCV 84.4 fL (80.0-100.0); MPV 7.2 fl. (7.2-11.1); RBC 4.37 mil/uL (4.50-6.00); RDW-CV 15.2 % (10.5-14.5); WBC 6.9 thou/uL (4.0-11.0)
[2020-02-23 05:45] LABS: ALBUMIN 1.8 g/dL (3.4-5.0); CALCIUM 7.7 mg/dL (8.5-10.1); CREATININE 1.3 mg/dL (0.6-1.3); MAGNESIUM 1.7 mg/dL (1.8-2.4); POTASSIUM 3.6 mmol/L (3.5-5.1); TOTAL BILIRUBIN 0.2 mg/dL (<0.1-1.0); TOTAL PROTEIN 5.7 g/dL (6.4-8.2)
--- NOTE | 2020-02-23 06:36 | NUR ---
ASSUMED PATIENT CARE AT 1900. PATIENT ALERT AND ORIENTED TIMES FOUR. REFUSES MOST MEDICATIONS, CLAIMING THAT HE CANNOT SWALLOW THEM. INCIDENCE OF LOW BLOOD PRESSURE NOTED. BOLUS GIVEN PER MD ORDERS. BLOOD PRESSURE NORMALIZED. METFORMIN HELD R/T PATIENT BLOOD LUCOSE OF 81. CHECKED AGAIN AT MIDNIGHT AND PATIENT AT 91 WITH NO INTERVENTION NEEDED. JOHN TO STAND AT EDSIDE TO USE URINAL AND PATIENT IS STEADY WITH THIS. DOES NEED HELP TO MANAGE DRAINS WHEN HE GETS BASK INTO BED. COMPLAINTS OF PAIN. ORAL MEDICATION GIVEN PER ORDERS. GUEST SERVICE TEAM LEADER AND COMPLETED CHARTED.
--- NOTE | 2020-02-23 16:57 | NUR ---
PT RESTING IN BED THROUGHOUT SHIFT. CALLS APPROPRIATELY FOR ASSIST TO BR. UP WITH SB ASSIST. TOLERATING PO WELL. MEDS GIVEN FOR CHRONIC PAIN. SISTER AT BS THIS AFTERNOOON AND UPDATED ON PLAN OF CARE
[2020-02-24 00:13] VITALS: BP 125/67
[2020-02-24 05:30] LABS: CALCIUM 8.2 mg/dL (8.5-10.1); CREATININE 1.1 mg/dL (0.6-1.3); MAGNESIUM 1.6 mg/dL (1.8-2.4); POTASSIUM 3.8 mmol/L (3.5-5.1)
--- NOTE | 2020-02-24 06:48 | NUR ---
ASSUMED PT'S CARE THIS PM SHFIT. PT ALERT AND ORIENTED. VSS ON RA. MEDS GIVEN PER EMAR. PAIN MEDS GIVEN THIS SHIFT. ADELAIDA HOSE TO BLE C/O EDEMA. PT HARD OF HEARING. SLEPT WELL THIS SHIFT. STB ASSIST TO BATHROOM. CALL LIGHT WITHIN REACH. HOURLY ROUNDINGS MADE. WILL CONTINUE TO MONITOR.
[2020-02-24 08:15] VITALS: BP 111/58
--- NOTE | 2020-02-24 16:30 | NUR ---
SITTING ON EDGE OF BED. STATED VERY TIRED. PIE ICER MACHINE REPORTED LOW BLOOD SUGAR. JUICE ON BEDSIDE TABLE. ENCOURAGED HIM TO DRINK IT. HE SAID SON LIVES WITH HIM. HE AND PTS SISTER ARE SUPPORTIVE. DID NOT HAVE HOME HEALTH AT DISCHARGE LAST TIME. HE THINKS IT MIGHT BE A GOOD IDEA THIS TIME. HE DID NOT HAVE ANY AGENCY IN MIND. 'JUST SO THEY TAKE MY INSURANCE.' [facility] TAKES PT'S INSURANCE AND GO TO [place]. HE IS AGREEABLE. STATED HE HAS 2 DOGS HE'LL NEED TO PUT UP WHEN THEY COME. CM WILL ARRANGE HH AT DISCHARGE. SHAHAB EOML-[id number]-[phone]/ [phone].
[2020-02-24 16:45] VITALS: BP 118/63
--- NOTE | 2020-02-24 17:46 | NUR ---
PT HAS BEEN IRRITABLE ALL DAY, HE IS UNHAPPY ABOUT THE AMOUNT OF MEDS HE IS TAKING, HE HAS NO TEETH AND HAS A HARD TIME WITH ANY FOODS THAT ARE ROUGH OR CRUNCHY, [place] HIS MEDS HAVE BEEN CRUSHED IN APPLESAUCE OR PUDDING THE PT STATES HE CANNOT TAKE THEM EASILY. HIS BLOOD SUGAR HAS BEEN TO THE LOW SIDE ALL DAY, THIS PM 65 THEN TREATED WITH JUICE WAS 75, HE IS NOT DRINKING JUICE INSTRUCTED. PT GB DRAIN HAS PUT OUT APPROX 1000 ML OF THICK GREEN DRAINAGE, THE BULB DRAIN HAS A SMALL AMOUNT OF SEROUS TO SEROSANGUINOUS DRAINAGE. PT HAS BEEN UNHAPPY BECAUSE WE WAKE HIM UP ALL DAY. VSS, WCTM
[2020-02-24 20:10] VITALS: BP 115/64
--- NOTE | 2020-02-25 04:30 | NUR ---
ASSUMED PT'S CARE THIS PM SHIFT. PT ALERT AND ORIENTED. VOICED BEING FRUSTRATED ABOUT BEING IN THE HOSPITAL. VSS ON RA. MEDS GIVEN PER EMAR. BIG PILLS CRUSHED AND MIXED IN APPLESAUCE PER PT'S REQUEST. PT AMBULATES INDEPENDENTLY. ENCOURAGED TO CALL WHEN NEEDING ASSISTANCE. CALL LIGHT WITHIN REACH. HOURLY ROUNDINGS MADE. WILL CONTINUE TO MONITOR.
[2020-02-25 04:36] LABS: HEMATOCRIT 43.1 % (42.0-52.0); MCH 28.1 pg (26.0-34.0); MCHC 32.5 g/dL (28.0-37.0); MCV 86.5 fL (80.0-100.0); MPV 7.3 fl. (7.2-11.1); RBC 4.98 mil/uL (4.50-6.00); RDW-CV 15.2 % (10.5-14.5); WBC 8.3 thou/uL (4.0-11.0)
[2020-02-25 04:45] LABS: ALBUMIN 2.2 g/dL (3.4-5.0); CALCIUM 8.1 mg/dL (8.5-10.1); CREATININE 0.9 mg/dL (0.6-1.3); MAGNESIUM 1.3 mg/dL (1.8-2.4); POTASSIUM 4.9 mmol/L (3.5-5.1); TOTAL BILIRUBIN 0.2 mg/dL (<0.1-1.0); TOTAL PROTEIN 5.9 g/dL (6.4-8.2)
[2020-02-25 07:45] VITALS: BP 126/65
[2020-02-25] MEDS ORDERED: CEFDINIR300 MG PO (09:04)
[2020-02-25] MEDS ORDERED: HYDROCHLOROTH12.5 M1 PO (09:05)
[2020-02-25 11:00] VITALS: BP 115/64
--- NOTE | 2020-02-25 11:25 | NUR ---
CM INFORMED DURING PRIME ROUNDING OF PLAN TO D/ CPT HOME TODAY WITH PT'S PREVIOUSLY CHOSEN HH LEONIES/NAYAN. CM CONTACTED [facility] TO INFORM OF THE PT'S D/C AND FAXED THE PT'S D/C ORDERS. [facility] NURSE WILL CONTACT THE PT TO ARRANGE A TIME TO VISIT. CM WILL REMAIN AVAILABLE TO ASSIST AND FOLLOW NEEDED. SHAHAB/NAYAN PHONE: [phone] FAX: [phone]
[2020-02-25 12:13] VITALS: BP 115/64
== END 2020-02-25 12:30 | disposition home health service (06) | DRG 441 ==
LOC: M.ERS 19:31 → M.3W 22:44 → M.TBA-ER 22:44 → M.3W 02-22 11:15
PROVIDERS: Emergency Medicine Emergency Medical Services; Internal Medicine; Surgery; ADMIT Family Medicine; ATTEND Family Medicine
PROC: 0F9230Z Drainage of Left Lobe Liver with Drainage Device, Percutaneous Approach (ICD-10-PCS; principal; 2020-02-22)
DX: K75.0 Abscess of liver (principal); N17.0 Acute kidney failure with tubular necrosis; E43 Unspecified severe protein-calorie malnutrition; B37.81 Candidal esophagitis; I95.2 Hypotension due to drugs; E87.70 Fluid overload, unspecified; K27.9 Peptic ulcer, site unspecified, unspecified as acute or chronic, without hemorrhage or perforation; D72.829 Elevated white blood cell count, unspecified; K81.9 Cholecystitis, unspecified; E11.65 Type 2 diabetes mellitus with hyperglycemia; Z20.828 Contact with and (suspected) exposure to other viral communicable diseases; F17.200 Nicotine dependence, unspecified, uncomplicated; Z88.5 Allergy status to narcotic agent; Z88.8 Allergy status to other drugs, medicaments and biological substances; Z68.26 Body mass index [BMI] 26.0-26.9, adult

== ENCOUNTER 2020-02-29 10:57 | Emergency (ER) | payer OTHER ==
[~2020-02-29] VITALS: Ht 188 cm; Wt 81.7 kg
[~2020-02-29 10:57] MED LIST changes: +HYDROCHLOROTH12.5 M1 PO
[2020-02-29 12:35] VITALS: BP 120/63
== END 2020-02-29 12:35 | disposition home or self-care (01) ==
LOC: M.ERS 10:57
DX: S05.32XA Ocular laceration without prolapse or loss of intraocular tissue, left eye, initial encounter (principal); S01.01XA Laceration without foreign body of scalp, initial encounter; I10 Essential (primary) hypertension; E11.9 Type 2 diabetes mellitus without complications; F17.210 Nicotine dependence, cigarettes, uncomplicated; Z90.49 Acquired absence of other specified parts of digestive tract; Z88.6 Allergy status to analgesic agent; Z88.8 Allergy status to other drugs, medicaments and biological substances; W01.0XXA Fall on same level from slipping, tripping and stumbling without subsequent striking against object, initial encounter; Y93.89 Activity, other specified; Y92.89 Other specified places as the place of occurrence of the external cause; Y99.8 Other external cause status

== ENCOUNTER 2020-03-03 11:11 | Emergency (ER) | payer OTHER ==
[~2020-03-03] VITALS: Ht 188 cm; Wt 83.9 kg
[2020-03-03 12:31] VITALS: BP 132/72
== END 2020-03-03 12:33 | disposition home or self-care (01) ==
LOC: M.ERS 11:11
DX: T85.618A Breakdown (mechanical) of other specified internal prosthetic devices, implants and grafts, initial encounter (principal); T85.79XA Infection and inflammatory reaction due to other internal prosthetic devices, implants and grafts, initial encounter; I10 Essential (primary) hypertension; E11.9 Type 2 diabetes mellitus without complications; F17.210 Nicotine dependence, cigarettes, uncomplicated; Z88.6 Allergy status to analgesic agent; Z88.8 Allergy status to other drugs, medicaments and biological substances; Z79.82 Long term (current) use of aspirin; Z79.899 Other long term (current) drug therapy; Y83.8 Other surgical procedures as the cause of abnormal reaction of the patient, or of later complication, without mention of misadventure at the time of the procedure; Y92.89 Other specified places as the place of occurrence of the external cause

== ENCOUNTER 2020-03-07 03:08 | Emergency (ER) | payer OTHER ==
[~2020-03-07] VITALS: Ht 188 cm; Wt 79.4 kg
[2020-03-07 03:50] VITALS: BP 139/68
== END 2020-03-07 03:50 | disposition home or self-care (01) ==
LOC: M.ERS 03:08
DX: S01.81XD Laceration without foreign body of other part of head, subsequent encounter (principal); T85.898A Other specified complication of other internal prosthetic devices, implants and grafts, initial encounter; E11.9 Type 2 diabetes mellitus without complications; I10 Essential (primary) hypertension; F17.210 Nicotine dependence, cigarettes, uncomplicated; Z88.6 Allergy status to analgesic agent; Z88.5 Allergy status to narcotic agent; X58.XXXD Exposure to other specified factors, subsequent encounter; Y83.8 Other surgical procedures as the cause of abnormal reaction of the patient, or of later complication, without mention of misadventure at the time of the procedure; Y92.89 Other specified places as the place of occurrence of the external cause

== ENCOUNTER → 2020-03-07 | Outpatient (CLI) | payer OTHER | END | disposition home or self-care (01) | LOC: M.INT 13:21 | PROVIDERS: ATTEND Surgery | DX: T85.51 Breakdown (mechanical) of gastrointestinal prosthetic devices, implants and grafts (principal); K80.80 Other cholelithiasis without obstruction; E11.10 Type 2 diabetes mellitus with ketoacidosis without coma; I10 Essential (primary) hypertension; F17.210 Nicotine dependence, cigarettes, uncomplicated; Z98.890 Other specified postprocedural states; Z79.899 Other long term (current) drug therapy; X58.XXXD Exposure to other specified factors, subsequent encounter ==

== ENCOUNTER 2020-04-05 17:24 | Inpatient (IN) | payer OTHER ==
[~2020-04-05] VITALS: Ht 172.7 cm; Wt 86.2 kg
[2020-04-05 17:32] VITALS: BP 112/66
[2020-04-05 18:06] LABS: ABSOLUTE EOSINOPHILS 0.1 thou/uL (0.0-0.7); ABSOLUTE LYMPHOCYTES 1.3 thou/uL (0.8-5.3); ABSOLUTE MONOCYTES 1.4 thou/uL (0.0-1.2); ABSOLUTE NEUTROPHILS 7.5 thou/uL (1.6-8.1); BASOPHILS 0.5 %; EOSINOPHILS 0.7 %; HEMATOCRIT 41.6 % (42.0-52.0); HEMOGLOBIN 13.6 gm/dL (14.0-18.0); LYMPHOCYTES 12.3 %; MCH 27.7 pg (26.0-34.0); MCHC 32.8 g/dL (28.0-37.0); MCV 84.5 fL (80.0-100.0); MONOCYTES 13.9 %; MPV 8.4 fl. (7.2-11.1); NUCLEATED RBCS 0 /100WBC; PLATELET COUNT* 274 thou/uL (150-400); POLYS 72.6 %; RBC 4.92 mil/uL (4.50-6.00); RDW-CV 16.1 % (10.5-14.5); WBC 10.3 thou/uL (4.0-11.0)
[2020-04-05 18:11] LABS: CALCIUM 8.3 mg/dL (8.5-10.1); CREATININE 1.8 mg/dL (0.6-1.3); POTASSIUM 3.1 mmol/L (3.5-5.1)
[2020-04-05 18:15] LABS: ALBUMIN 2.6 g/dL (3.4-5.0); TOTAL BILIRUBIN 0.6 mg/dL (<0.1-1.0); TOTAL PROTEIN 6.7 g/dL (6.4-8.2)
[2020-04-05 23:15] VITALS: BP 114/61
[2020-04-06] VITALS: BP 120/70
[2020-04-06 04:00] VITALS: BP 126/68
[2020-04-06 04:26] LABS: ABSOLUTE BASOPHILS 0.1 thou/uL (0.0-0.2); ABSOLUTE EOSINOPHILS 0.1 thou/uL (0.0-0.7); ABSOLUTE LYMPHOCYTES 1.5 thou/uL (0.8-5.3); ABSOLUTE MONOCYTES 1.3 thou/uL (0.0-1.2); ABSOLUTE NEUTROPHILS 6.3 thou/uL (1.6-8.1); BASOPHILS 0.6 %; EOSINOPHILS 1.5 %; HEMATOCRIT 37.2 % (42.0-52.0); HEMOGLOBIN 12.4 gm/dL (14.0-18.0); LYMPHOCYTES 16.6 %; MCH 27.9 pg (26.0-34.0); MCHC 33.4 g/dL (28.0-37.0); MCV 83.5 fL (80.0-100.0); MONOCYTES 13.6 %; MPV 8.4 fl. (7.2-11.1); NUCLEATED RBCS 0 /100WBC; PLATELET COUNT* 238 thou/uL (150-400); POLYS 67.7 %; RBC 4.46 mil/uL (4.50-6.00); RDW-CV 16.1 % (10.5-14.5); WBC 9.3 thou/uL (4.0-11.0)
[2020-04-06 04:50] LABS: CALCIUM 8.2 mg/dL (8.5-10.1); POTASSIUM 3.1 mmol/L (3.5-5.1)
[2020-04-06 04:54] LABS: TOTAL BILIRUBIN 0.6 mg/dL (<0.1-1.0); TOTAL PROTEIN 5.3 g/dL (6.4-8.2)
[2020-04-06 08:08] VITALS: BP 117/69
[2020-04-06 12:00] VITALS: BP 129/66
[2020-04-06 13:16] LABS: URINE BILIRUBIN NEGATIVE (Negative); URINE BLOOD TRACE (Negative); URINE CLARITY CLEAR; URINE COLOR YELLOW; URINE GLUCOSE-RANDOM 3+ (Negative); URINE KETONES NEGATIVE (Negative); URINE LEUKOCYTES-REFLEX NEGATIVE (Negative); URINE NITRITE-REFLEX NEGATIVE (Negative); URINE PROTEIN NEGATIVE (Negative); URINE SPECIFIC GRAVITY 1.015 (1.005-1.030); URINE UROBILINOGEN 0.2 E.U./dl (0.2-1.0)
[2020-04-06 16:13] VITALS: BP 133/71
[2020-04-06 20:00] VITALS: BP 141/67
[2020-04-07] VITALS: BP 109/64
[2020-04-07 04:00] VITALS: BP 103/61
[2020-04-07 04:11] LABS: HEMATOCRIT 35.8 % (42.0-52.0); HEMOGLOBIN 11.6 gm/dL (14.0-18.0); MCH 27.4 pg (26.0-34.0); MCHC 32.5 g/dL (28.0-37.0); MCV 84.4 fL (80.0-100.0); MPV 8.8 fl. (7.2-11.1); RBC 4.25 mil/uL (4.50-6.00); RDW-CV 16.3 % (10.5-14.5)
[2020-04-07 04:15] LABS: ABSOLUTE BASOPHILS 0.1 thou/uL (0.0-0.2); ABSOLUTE EOSINOPHILS 0.3 thou/uL (0.0-0.7); ABSOLUTE LYMPHOCYTES 2.3 thou/uL (0.8-5.3); ABSOLUTE MONOCYTES 1.2 thou/uL (0.0-1.2); ABSOLUTE NEUTROPHILS 5.3 thou/uL (1.6-8.1); EOSINOPHILS 3.2 %; HEMATOCRIT 35.3 % (42.0-52.0); HEMOGLOBIN 11.6 gm/dL (14.0-18.0); LYMPHOCYTES 25.1 %; MCH 27.4 pg (26.0-34.0); MCHC 32.8 g/dL (28.0-37.0); MCV 83.7 fL (80.0-100.0); MPV 8.7 fl. (7.2-11.1); NUCLEATED RBCS 0 /100WBC; PLATELET COUNT* 281 thou/uL (150-400); POLYS 57.7 %; RBC 4.22 mil/uL (4.50-6.00); WBC 9.2 thou/uL (4.0-11.0)
[2020-04-07 04:35] LABS: ALBUMIN 1.8 g/dL (3.4-5.0); CALCIUM 7.7 mg/dL (8.5-10.1); CREATININE 0.8 mg/dL (0.6-1.3); MAGNESIUM 1.7 mg/dL (1.8-2.4); POTASSIUM 3.7 mmol/L (3.5-5.1); TOTAL BILIRUBIN 0.4 mg/dL (<0.1-1.0); TOTAL PROTEIN 5.2 g/dL (6.4-8.2)
[2020-04-07 08:00] VITALS: BP 148/65
[2020-04-07] MEDS ORDERED: GLIPIZIDE 10 MG10 MG PO (08:02)
[2020-04-07] MEDS ORDERED: PIOGLITAZONE15 MG PO (08:02)
[2020-04-07] MEDS ORDERED: LEVOFLOXACIN500 MG PO (08:02)
[2020-04-07 11:41] VITALS: BP 132/78
[2020-04-07 11:53] VITALS: BP 132/78
--- NOTE | 2020-04-08 11:30 | EKG ---
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 : 1950 Requested By: Akua Macario Order Number: [id number] MD: Charley Lui Measurements Intervals [place] Rate: 102 P: 34 MA: 142 QRS: 41 QRSD: 97 T: 38 QT: 399 QTc: 520 Interpretive Statements Sinus tachycardia Atrial premature complexes Inferior infarct, old Prolonged QT interval Compared to ECG 02/21/2020 20:13:50 Atrial premature complex(es) now present Prolonged QT interval now present Sinus rhythm no longer present ST (T wave) deviation no longer present Electronically Signed On 04-08-2020 11:30:25 ACCOUNTING MANAGER CPA by Charley Lui [email or web address] <ELECTRONICALLY SIGNED> By: Charley Lui MD, FACC 04/08/20 1130 174 1743 Charley Lui MD, FAC /EPI
== END 2020-04-07 12:39 | disposition home or self-care (01) | DRG 919 ==
LOC: M.ERS 17:24 → M.TBA-ER 20:10 → M.2W 20:10
PROVIDERS: Internal Medicine; Nurse Practitioner Family; Surgery; ADMIT Internal Medicine; ATTEND Internal Medicine
DX: T85.698A Other mechanical complication of other specified internal prosthetic devices, implants and grafts, initial encounter (principal); E43 Unspecified severe protein-calorie malnutrition; E87.1 Hypo-osmolality and hyponatremia; K81.0 Acute cholecystitis; B37.81 Candidal esophagitis; Z20.828 Contact with and (suspected) exposure to other viral communicable diseases; E87.6 Hypokalemia; I10 Essential (primary) hypertension; F17.210 Nicotine dependence, cigarettes, uncomplicated; E11.65 Type 2 diabetes mellitus with hyperglycemia; Z87.11 Personal history of peptic ulcer disease; Z88.6 Allergy status to analgesic agent; Z88.8 Allergy status to other drugs, medicaments and biological substances; Z80.0 Family history of malignant neoplasm of digestive organs; Z79.82 Long term (current) use of aspirin; Z79.899 Other long term (current) drug therapy; Y83.8 Other surgical procedures as the cause of abnormal reaction of the patient, or of later complication, without mention of misadventure at the time of the procedure; Y92.89 Other specified places as the place of occurrence of the external cause; Z68.28 Body mass index [BMI] 28.0-28.9, adult

== ENCOUNTER → 2020-04-13 | Outpatient (CLI) | payer OTHER ==
[~2020-04-13] MED LIST changes: +GLIPIZIDE 10 MG10 MG PO; +LEVOFLOXACIN500 MG PO; +PIOGLITAZONE15 MG PO
== END ==
LOC: M.LAB 09:10
PROVIDERS: ATTEND Surgery
DX: Z01.812 Encounter for preprocedural laboratory examination (principal); Z20.828 Contact with and (suspected) exposure to other viral communicable diseases; K82.2 Perforation of gallbladder

== ENCOUNTER 2020-04-18 06:42 | Inpatient (IN) | payer OTHER ==
[~2020-04-18] VITALS: Ht 188 cm; Wt 86.2 kg
--- NOTE | ~2020-04-18 | CON ---
[address] [address] CONSULTATION Name: WANDACHARLEY Paco Room: [address] IN M.R.#: [id number] Admission: 04/18/20 Attend Phys: Tala Alba DO Discharge: 04/20/20 Date of : 46 Report #: [id number] THIS REPORT FOR: cc: [facility] - Clinic physician unknown [facility] - Clinic physician unknown ~ Syed Rodriguez DO DATE OF SERVICE: 04/19/2020 REFERRING PHYSICIAN: Tala Alba DO REASON FOR CONSULTATION: Common bile duct stone. IMPRESSION: 1. Abnormal intraoperative cholangiogram demonstrating no filling of the duodenum with suspected common bile duct stones. 2. Status post laparoscopic cholecystectomy on 04/18. 3. Chronic gastric reflux with erosive esophagitis with need for followup of the same. RECOMMENDATIONS: Proceed with upper endoscopy and to evaluate for healing of his erosive esophagitis and ERCP with biliary sphincterotomy and stone extraction. I have discussed the plans with the patient as well and he is agreeable to the same. HISTORY OF PRESENT ILLNESS: The patient is a pleasant 70-year-old white male who was admitted overnight for ERCP after having undergone laparoscopic cholecystectomy with intraoperative cholangiogram yesterday. He had a complicated course with a ruptured gallbladder, which required placement of a cholecystostomy tube with ____ drainage of multiple abscesses around the gallbladder. He is admitted to the hospital to remove any stones that may be within the biliary tree. I was consulted to see the patient at the time of his operation and I recommend the patient be admitted to the hospital for further evaluation and treatment. He is now here for the same. Please see previous consultation by us in March for further details. ALLERGIES: FENTANYL AND MORPHINE. MEDICATIONS AT HOME: Include aspirin, oxycodone, atorvastatin, metformin, Carafate, pantoprazole. PAST MEDICAL AND SURGICAL HISTORY: Remarkable for diabetes, hypertension, erosive esophagitis, recent gallbladder rupture ____ abdominal drains for abscess drainage. He has also [place] [address] CONSULTATION Name: CHARLEY MUÑOZ Room: [address]#: [id number] Admission: 04/18/20 Attend Phys: Tala Alba DO Discharge: 04/20/20 Date of : 46 Report #: [id number] SOCIAL HISTORY: The patient does smoke every day. He does not drink alcohol. FAMILY HISTORY: Negative. PHYSICAL EXAMINATION: GENERAL: Pleasant revealed a 68-year-old gentleman who is awake and alert. CARDIOPULMONARY: Revealed a regular rate and rhythm. LUNGS: Clear. ABDOMEN: Soft. It was tender postoperatively. No rebound or guarding noted. LABORATORY DATA: His laboratory tests from the revealed a white count of 16.0, hemoglobin 11.6, platelet count 600,000, MCV is 85.3 and RDW of 16.6. His sodium 135, potassium 3.8, chloride 99, bicarbonate 30, BUN 12, creatinine 0.8, GFR of 95. Total bilirubin is 1.6, alkaline phosphatase 180, AST 44, ALT 41, albumin 2.3. DISCUSSION: At the present time, the patient is admitted to the hospital for EGD and ERCP. We will proceed with same and make further recommendations thereafter. By: [id number] Rodriguez DO /jann
[2020-04-18 07:42] LABS: ABSOLUTE BASOPHILS 0.1 thou/uL (0.0-0.2); ABSOLUTE EOSINOPHILS 0.2 thou/uL (0.0-0.7); ABSOLUTE LYMPHOCYTES 3.4 thou/uL (0.8-5.3); ABSOLUTE MONOCYTES 0.8 thou/uL (0.0-1.2); ABSOLUTE NEUTROPHILS 6.3 thou/uL (1.6-8.1); BASOPHILS 1.3 %; EOSINOPHILS 2.2 %; HEMATOCRIT 43.1 % (42.0-52.0); HEMOGLOBIN 13.9 gm/dL (14.0-18.0); LYMPHOCYTES 31.2 %; MCH 27.9 pg (26.0-34.0); MCHC 32.3 g/dL (28.0-37.0); MCV 86.2 fL (80.0-100.0); MONOCYTES 7.5 %; NUCLEATED RBCS 0 /100WBC; PLATELET COUNT* 750 thou/uL (150-400); POLYS 57.8 %; RBC 4.99 mil/uL (4.50-6.00); RDW-CV 16.8 % (10.5-14.5)
--- NOTE | 2020-04-18 11:03 | EKG ---
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: : 1950 Requested By: Tala Alba Order Number: [id number] MD: Boone Lui Measurements Intervals [place] Rate: 84 P: -3 SC: 123 QRS: 15 QRSD: 84 T: 54 QT: 400 QTc: 473 Interpretive Statements Sinus rhythm Ventricular premature complex Probable left atrial enlargement Borderline low voltage, extremity leads Compared to ECG 04/05/2020 17:43:59 Ventricular premature complex(es) now present Sinus tachycardia no longer present Atrial premature complex(es) no longer present Prolonged QT interval no longer present Electronically Signed On 04-18-2020 11:03:31 MASH PREPARATORY OPERATOR by Boone Lui [email or web address] <ELECTRONICALLY SIGNED> By: Boone Lui MD, FACC 04/18/20 1103 9 9 Boone Lui MD, FAC /EPI
[2020-04-18 15:15] VITALS: BP 188/100
[2020-04-18 21:24] VITALS: BP 196/115
[2020-04-19] VITALS (7 sets, daily range): BP systolic 95–142; BP diastolic 46–86
[2020-04-19 06:19] LABS: ABSOLUTE BASOPHILS 0.1 thou/uL (0.0-0.2); ABSOLUTE LYMPHOCYTES 1.7 thou/uL (0.8-5.3); ABSOLUTE MONOCYTES 1.5 thou/uL (0.0-1.2); ABSOLUTE NEUTROPHILS 12.8 thou/uL (1.6-8.1); BASOPHILS 0.6 %; HEMATOCRIT 35.7 % (42.0-52.0); LYMPHOCYTES 10.5 %; MCH 27.7 pg (26.0-34.0); MCHC 32.5 g/dL (28.0-37.0); MCV 85.3 fL (80.0-100.0); MONOCYTES 9.2 %; MPV 7.3 fl. (7.2-11.1); NUCLEATED RBCS 0 /100WBC; POLYS 79.7 %; RBC 4.18 mil/uL (4.50-6.00); RDW-CV 16.6 % (10.5-14.5)
[2020-04-19 06:20] LABS: HEMOGLOBIN 11.6 gm/dL (14.0-18.0); PLATELET COUNT* 600 thou/uL (150-400)
[2020-04-19 06:32] LABS: CALCIUM 7.9 mg/dL (8.5-10.1); CREATININE 0.8 mg/dL (0.6-1.3); POTASSIUM 3.8 mmol/L (3.5-5.1)
[2020-04-19 06:36] LABS: ALBUMIN 2.3 g/dL (3.4-5.0); TOTAL BILIRUBIN 1.6 mg/dL (<0.1-1.0); TOTAL PROTEIN 5.8 g/dL (6.4-8.2)
--- NOTE | 2020-04-19 08:45 | OP ---
[address] [address] OPERATIVE REPORT Name: CHARLEY MUÑOZ Room: [address] IN M.R.#: [id number] Admission: 04/18/20 Attend Phys: Tala Alba DO Discharge: Date of : 46 Report #: [id number] THIS REPORT FOR: cc: [facility] - Clinic physician unknown [facility] - Clinic physician unknown ~ Tala Alba DO DATE OF SERVICE: 04/18/2020 PREPROCEDURE DIAGNOSES: Chronic cholecystitis with cholelithiasis with obstruction. POSTPROCEDURE DIAGNOSES: Chronic cholecystitis with cholelithiasis with obstruction. FINDINGS: There was a cholecystostomy tube in place in the right upper quadrant. Gallbladder was hugely distended and full of small stones. Fluoroscopy time was 53 seconds. CBD was hugely dilated, and there appeared to be multiple small stones at the ampulla. No contrast was seen in the duodenum after multiple runs of contrast. SURGEON: Tala Alba DO COSURGEON: Arnulfo Hartley DO, PGY-1. ASSURANCE SENIOR MANAGER INSURANCE: MS Natahniel3. PROCEDURE PERFORMED: Laparoscopic cholecystectomy with intraoperative cholangiogram and surgeon interpretation of images. ANESTHESIA: General endotracheal with local and TAP's block. ESTIMATED BLOOD LOSS: 10 mL. DRAINS: A 15-Polish ANTONIO drain in the right upper quadrant. SPECIMENS: Gallbladder. COMPLICATIONS: None. CONDITION: Stable. DISPOSITION: PACU to the floor. HISTORY OF PRESENT ILLNESS: The patient is a very pleasant 70-year-old gentleman who is well known to our service after a recent extended admission where he suffered a perforation of his gallbladder. On that admission, [place] [address] OPERATIVE REPORT Name: CHARLEY MUÑOZ Room: [address] IN [facility].#: [id number] Admission: 04/18/20 Attend Phys: Tala Alba DO Discharge: Date of : 46 Report #: [id number] underwent a cholecystostomy tube placement and a ANTONIO drain placed for a liver abscess. That hospitalization was quite prolonged due to multiple complications. He was discharged, but has suffered multiple repeat admissions to the hospital and to the emergency room with issues with his cholecystostomy tube and other issues. He is now finally healed well enough to move forward with a cholecystectomy and removal of his cholecystostomy. Risks of surgery were discussed to include bleeding, infection, pain, scar formation, injury to bowel, liver or bile duct, hernia at the incision sites, need for an open procedure and risks of general anesthesia. Of note, the patient was informed that he was high risk for need for an open procedure. The patient understood these risks and elected to proceed. DESCRIPTION OF PROCEDURE: The patient was brought to the operating room. He was laid supine on the operating room table. SCDs were placed on bilateral lower extremities. Ancef was given perioperatively. General endotracheal anesthesia was induced by Anesthesia without difficulty. TAP's blocks were also then provided without issue. Cholecystostomy tube was disconnected from its bag and was taped to the right upper quadrant. Abdomen was prepped and draped in standard sterile fashion. Timeout was performed to verify patient and procedure. A 10 mL of 0.5% Marcaine were injected in the supraumbilical area. Incision was made with 11 blade. Cautery was used for hemostasis. S retractors were used to visualize fascia. Fascia was grasped and elevated between 2 Kochers. Fascia was incised using cautery. Peritoneum was bluntly entered using a Effie clamp. Finger was introduced into the abdomen to assure that there were no keri-incisional adhesions, none were identified. Two stitches of 0 Vicryl placed on the fascia. Gallito trocar was introduced and secured with 0 Vicryl stitches. Abdomen was insufflated. The patient was placed head up and tilted left side down. Camera was introduced and a brief anterior abdominal exploration was undertaken with findings of multiple adhesions in the right upper quadrant. Gallbladder appeared to be hugely distended and completely enrobed in omental adhesions. The cholecystostomy tube could be seen entering the right upper quadrant through the lip of the liver and into the gallbladder. Three 5 mm trocars were then introduced, one in the subxiphoid area and two in the right upper quadrant. We began initially by taking down the multitude of adhesions in the right upper quadrant until the gallbladder could be fully visualized. Again, it was completely enrobed in omental tissue. The omentum was gently distracted down towards the patient's feet and was taken down using a combination of blunt and cautery dissection until the triangle of Calot could be visualized. Peritoneum overlying the triangle of Calot was then incised. Duct and artery were both easily visualized, both were circumferentially dissected free using a [place] dissector. Of note, I could also clearly see the hepatic artery and the common bile duct, these were carefully protected during our dissection. Any tissue posterior to the artery was removed due to the liver plate. This then afforded to critical view. Jones clamp was brought onto the field and the distal portion of the cystic duct was clamped and the cholangiogram catheter was introduced. The [place] [address] OPERATIVE REPORT Name: CHARLEY MUÑOZ Room: [address] IN [facility]#: [id number] Admission: 04/18/20 Attend Phys: Tala Alba DO Discharge: Date of : 46 Report #: [id number] position and C-arm was brought into the field. Intraoperative cholangiogram was then performed utilizing contrast at 50/50 strength with excellent opacification of the ducts. The common bile duct was hugely dilated. Multiple stones could be seen floating near the ampulla despite multiple attempts no contrast was ever able to be flushed into the duodenum. GI happened to be nearby and was able to come into the room and agreed with our findings. The cholangiogram catheter and Jones clamp were then removed. The patient was returned to the head up and left side down position. Duct and artery were then both doubly clipped and ligated. Gallbladder was removed from the liver bed utilizing cautery with some difficulty secondary to an ongoing inflammatory plane and what appeared to be an abscess at the liver bed. Cholecystostomy tube was then cut at the peritoneum. The gallbladder was then placed within an EndoCatch bag. Liver bed was inspected. It was hemostatic. Clips were inspected. They appeared to be intact. There was no bleeding or leakage noted from the area of the clips. Right upper quadrant was then copiously irrigated until clear. A cholecystostomy tube was removed and any scar tissue holding the liver edge to the anterior abdominal wall was removed allowing the liver to fall into its anatomical position. A 15-Polish ANTONIO drain was introduced into the right upper quadrant. Trocars were then all removed under direct visualization. There was no bleeding noted from the peritoneum. Abdomen was completely desufflated. Gallito trocar was removed and EndoCatch bag was removed with specimen intact after extending the fascial incision due to the excessive size of the gallbladder and the multiple stones, multiple small stones were palpated within the gallbladder. This was then handed off for permanent pathology. Kochers were placed on the fascia of our supraumbilical port. Previously placed 0 Vicryl stitches were removed and a 0 Vicryl stitch was placed in [id number] fashion with excellent approximation of the fascia. An additional 10 mL of 0.5% Marcaine were injected in the fascia. This wound was closed in a layered fashion using deep and superficial stitches of 3-0 Vicryl in inverted interrupted fashion. Skin wounds were all closed with 4-0 Monocryl. ANTONIO drain was sutured into place using a 2-0 nylon. Skin wounds were all cleansed and covered with skin glue. Drain was covered with a 4 x 4 and a Tegaderm. The patient was then allowed to awaken from anesthesia, was extubated and transported to the recovery room with no further difficulties. Counts were correct x 2 at the conclusion of the case. <ELECTRONICALLY SIGNED> By: Tala Alba DO 04/19/20 0845 1317 [id number] Alba DO /nt
[2020-04-20 00:34] VITALS: BP 96/52
[2020-04-20 04:18] VITALS: BP 118/63
[2020-04-20 04:28] LABS: ABSOLUTE BASOPHILS 0.1 thou/uL (0.0-0.2); ABSOLUTE EOSINOPHILS 0.1 thou/uL (0.0-0.7); ABSOLUTE LYMPHOCYTES 3.7 thou/uL (0.8-5.3); ABSOLUTE MONOCYTES 1.3 thou/uL (0.0-1.2); ABSOLUTE NEUTROPHILS 9.4 thou/uL (1.6-8.1); BASOPHILS 0.7 %; HEMATOCRIT 28.1 % (42.0-52.0); LYMPHOCYTES 25.3 %; MCH 27.4 pg (26.0-34.0); MCHC 31.8 g/dL (28.0-37.0); MCV 86.1 fL (80.0-100.0); MONOCYTES 8.6 %; MPV 7.1 fl. (7.2-11.1); NUCLEATED RBCS 0 /100WBC; POLYS 64.4 %; RBC 3.26 mil/uL (4.50-6.00); RDW-CV 16.5 % (10.5-14.5); WBC 14.6 thou/uL (4.0-11.0)
[2020-04-20 05:05] LABS: ALBUMIN 2.1 g/dL (3.4-5.0); CALCIUM 7.9 mg/dL (8.5-10.1); CREATININE 0.8 mg/dL (0.6-1.3); MAGNESIUM 1.5 mg/dL (1.8-2.4); PHOSPHORUS* 3.5 mg/dL (2.5-4.9); POTASSIUM 3.6 mmol/L (3.5-5.1); TOTAL BILIRUBIN 0.8 mg/dL (<0.1-1.0); TOTAL PROTEIN 5.2 g/dL (6.4-8.2)
[2020-04-20 05:25] LABS: HEMOGLOBIN 8.9 gm/dL (14.0-18.0); PLATELET COUNT* 403 thou/uL (150-400)
[2020-04-20 07:30] VITALS: BP 115/50
[2020-04-20 09:58] VITALS: BP 115/50
[2020-04-20 10:49] VITALS: BP 115/50
--- NOTE | 2020-04-20 17:07 | PATH ---
[facility] [address] [place] [address] PATHOLOGY RPT PROCEDURE Name: CHARLEY MEZA Room: [address] IN M.R.#: [id number] Admission: 04/18/20 Date of : 46 Discharge: 04/20/20 Report #: [id number] Path Case #: [id number] [facility] Accession Number: [id number] . 01 Material submitted: . gallbladder - GALLBLADDER WITH CONTENTS . 01 Clinical history: . ACUTE CHOLECYSTITIS WITH CHOLELITHIASIS WITH OBSTRUCTION, WITH RUPTURE . 02 Diagnosis: Gallbladder with contents: - Chronic and acute cholecystitis with mural fibrosis and cholelithiasis. - Grossly identified white tubing. . (VERITO:mml; 04/20/2020) QLM 04/20/2020 1257 Local . 02 Electronically signed: . Kevon Kee MD, Pathologist NPI- [id number] . 01 Gross description: . The specimen is received in formalin, labeled "Charley Meza, gallbladder with contents". Received is an intact gallbladder measuring 7.7 x 3.7 x 3.0 cm in greatest dimensions displaying a pink-gutierres, shaggy serosal surface. Opening the specimen reveals a velvety, light brown mucosa with a gallbladder wall thickness of 0.1 cm. Calculi are present displaying a black and multifaceted appearance, and no masses or lesions are noted grossly. Within the lumen of the gallbladder is a curled segment of white catheter tubing measuring 9.9 cm in length by 0.4 cm in diameter. Professional Fee Coder sections, to include the proximal margin, are submitted in cassette A1. A gross photograph of the catheter is taken. ([facility]; 04/19/2020) QA/[facility] 04/20/2020 1247 Local . 02 Pathologist provided ICD-10: K80.12 . 02 CPT . 955141 Specimen Comment: A courtesy copy of this report has been sent to [phone] Specimen Comment: Report sent to Performed at: [address] [facility] [id number] MD Kalia Kerr MD Phone: [phone] Performed at: [address] [place] [address] PATHOLOGY RPT PROCEDURE Name: CHARLEY MEZA Room: [address] IN M.R.#: [id number] Admission: 04/18/20 Date of : 46 Discharge: 04/20/20 Report #: [id number] Path Case #: [id number] [facility] [address] [place] [id number] MD Kevon Kee MD Phone: [phone]
== END 2020-04-20 10:25 | disposition home or self-care (01) | DRG 418 ==
LOC: M.SUR 06:42 → M.TBA 13:07 → M.3W 13:07 → M.SUR 13:08 → M.3W 15:05
PROVIDERS: Internal Medicine Gastroenterology; ADMIT Surgery; ATTEND Surgery
DX: K80.45 Calculus of bile duct with chronic cholecystitis with obstruction (principal); R65.10 Systemic inflammatory response syndrome (SIRS) of non-infectious origin without acute organ dysfunction; E44.0 Moderate protein-calorie malnutrition; B37.81 Candidal esophagitis; K21.00 Gastro-esophageal reflux disease with esophagitis, without bleeding; Z85.07 Personal history of malignant neoplasm of pancreas; Z88.6 Allergy status to analgesic agent; Z79.899 Other long term (current) drug therapy; Z79.82 Long term (current) use of aspirin; Z68.24 Body mass index [BMI] 24.0-24.9, adult

== ENCOUNTER 2020-12-20 08:41 | Inpatient (IN) | payer OTHER ==
[~2020-12-20] VITALS: Ht 188 cm; Wt 78.5 kg
[2020-12-20 08:43] VITALS: BP 109/68
[2020-12-20] MEDS ORDERED: TOPROL XL25 MG PO (08:49)
[2020-12-20] MEDS ORDERED: ASPIRIN EC81 M1 PO (08:49)
[2020-12-20] MEDS ORDERED: LISINOPRIL-HCT1 EAC1 PO (08:50)
[2020-12-20 08:57] LABS: ABSOLUTE BASOPHILS 0.1 thou/uL (0.0-0.2); ABSOLUTE EOSINOPHILS 0.1 thou/uL (0.0-0.7); ABSOLUTE LYMPHOCYTES 1.9 thou/uL (0.8-5.3); ABSOLUTE MONOCYTES 1.7 thou/uL (0.0-1.2); ABSOLUTE NEUTROPHILS 10.6 thou/uL (1.6-8.1); BASOPHILS 0.5 %; EOSINOPHILS 0.8 %; HEMATOCRIT 45.4 % (42.0-52.0); HEMOGLOBIN 15.2 gm/dL (14.0-18.0); LYMPHOCYTES 13.1 %; MCH 28.5 pg (26.0-34.0); MCHC 33.4 g/dL (28.0-37.0); MCV 85.4 fL (80.0-100.0); MONOCYTES 11.6 %; MPV 8.4 fl. (7.2-11.1); NUCLEATED RBCS 0 /100WBC; PLATELET COUNT* 452 thou/uL (150-400); RBC 5.32 mil/uL (4.50-6.00); RDW-CV 15.3 % (10.5-14.5); WBC 14.4 thou/uL (4.0-11.0)
[2020-12-20 09:03] LABS: CALCIUM 9.3 mg/dL (8.5-10.1); POTASSIUM 3.5 mmol/L (3.5-5.1)
[2020-12-20 09:08] LABS: ALBUMIN 2.6 g/dL (3.4-5.0); TOTAL BILIRUBIN 1.1 mg/dL (<0.1-1.0)
--- NOTE | 2020-12-20 11:11 | EKG ---
[place] [address] ELECTROCARDIOGRAM REPORT Name: CHARLEY MUÑOZ Room: [place] [address] ADM IN [facility]#: [id number] Admission: 12/20/20 Attend Phys: Volodymyr Tsai Discharge: Date of : 46 Date of Service: 12/20/20 0944 Report #: [id number] THIS REPORT FOR: //name// [facility] ED Test Date: 2020-12-20 Test Time: 09:44:22 Pat Name: CHARLEY MUÑOZ Department: Room: [facility] Gender: M Practice Or Student Teacher: : 1950 Requested By: Jose G Lazo Order Number: [id number] MD: Charley Lui Measurements Intervals [place] Rate: 106 P: -46 IA: 138 QRS: 47 QRSD: 96 T: 77 QT: 391 QTc: 520 Interpretive Statements Sinus or ectopic atrial tachycardia Inferior infarct, old Prolonged QT interval Compared to ECG 04/18/2020 07:30:24 Prolonged QT interval now present Sinus rhythm no longer present Ventricular premature complex(es) no longer present Electronically Signed On 12-20-2020 11:11:15 CDT by Charley Lui [email or web address] <ELECTRONICALLY SIGNED> By: Charley Lui MD, [facility] 12/20/20 1111 0944 Charley Lui MD, [facility] /EPI
--- NOTE | 2020-12-20 14:14 | CON ---
[address] [address] CONSULTATION Name: CHARLEY MUÑOZ Room: [place] [address] ADM IN [facility].#: [id number] Admission: 12/20/20 Attend Phys: Kaushal Brambila Discharge: Date of : 46 Report #: [id number] THIS REPORT FOR: cc: Meredith Garcia Sarah Anne FNP Blick, David R. MD [facility] ~ DATE OF CONSULTATION: 12/20/2020 CARDIOLOGY CONSULTATION HISTORY OF PRESENT ILLNESS: The patient is a 70-year-old single white male who I was asked to see in the Emergency Room today after he was noted to have an abnormal ECG. The history is obtained from the patient as well as some old records. There are no family members available at this time. The patient has had several hospitalizations here at [facility] in the past. He was admitted here in 02/2020 with sepsis. He had acute kidney injury. He has a long history of diabetes. He had DKA at that time. He had a back abscess. He had cholecystitis and underwent a cholecystectomy. He had EGD and was found to have a hiatal hernia and esophageal ulcers. The patient lives by himself, is not very active at this time. He was admitted here in 02/2020 with lower extremity edema and was felt to have volume overload. He had a liver abscess drained at that time. He also had pneumonia. The patient was again admitted in 03/2020 with abdominal pain. He was felt to be malnourished. The patient states that recently he hurts all over in all of his joints. He has been weak. He has fallen recently. Because of these symptoms, his daughter actually called the ambulance this morning. He was brought here to [facility]. He was noted to have an abnormal ECG and I was asked to see him for further evaluation and treatment. PAST MEDICAL HISTORY: He has had previous cholecystectomy. He has a history of hypertension, diabetes. CURRENT MEDICATIONS: He brought his medications along that included metoprolol tartrate 25 mg a day. He takes aspirin 325 mg a day, metformin 500 mg twice a day, lisinopril/HCTZ 20-12.5 a day, glipizide 10 mg a day. ALLERGIES: He has no known drug allergies. FAMILY HISTORY: Negative for heart disease. SOCIAL HISTORY: He is single, lives by himself in [place], [place]. He smokes half pack of cigarettes. No alcohol abuse. REVIEW OF SYSTEMS: There is no history of stroke, asthma, liver disease. He has had chronic kidney disease. No cancer, no psychiatric illness, [place] [address] CONSULTATION Name: CHARLEY MUÑOZ Room: [address] IN [facility]#: [id number] Admission: 12/20/20 Attend Phys: Kaushal Brambila Discharge: Date of : 46 Report #: [id number] skin condition. PHYSICAL EXAMINATION: GENERAL: Revealed an elderly, frail-appearing male, who appeared in no acute distress. VITAL SIGNS: He had a blood pressure of 110/70, pulse was 70. He was afebrile. HEENT: He was anicteric. Conjunctivae are pink. Mucous membranes are moist. NECK: Veins do not appear distended. CHEST: Clear to auscultation. HEART: Regular rate and rhythm. No murmur. ABDOMEN: Soft. EXTREMITIES: Had no pitting edema. Dorsalis pedis pulse 1+ bilaterally. SKIN: Cool and dry. NEUROLOGIC: He is very slow moving. LABORATORY DATA: ECG showed a sinus rhythm with upsloping ST segment elevation in lead II, III and aVF. There are no reciprocal changes. His workup so far, the patient actually had an echocardiogram done a year ago in 01/2020 that showed an ejection fraction of 60% with aortic sclerosis. His chest x-ray in the Emergency Room today showed normal heart size, infiltrate in the right lower lung. His lab work, sodium 135, BUN 35, creatinine 1.0, glucose 261. His troponin is 0.08. Previous LDL a year ago was only 33. His white blood cell count is 14.4, hemoglobin 15.2. His COVID antigen stat test is not available. IMPRESSION AND RECOMMENDATIONS: 1. Pneumonia. 2. Borderline troponin. No evidence of myocardial infarction. 3. Hypertension. The patient is on a beta ronny, JOVI inhibitor and diuretic. 4. Diabetes mellitus. 5. Tobacco abuse. <ELECTRONICALLY SIGNED> By: Charley Lui MD, [facility] 12/20/20 1414 0935 1214Dgenesis Lui MD, FAC /nt
[2020-12-20 14:49] LABS: CHOLESTEROL 173 mg/dL (<200); HDL CHOLESTEROL 26 mg/dL (>40); LDL CHOLESTEROL 106 mg/dL (<100); TC:HDL 6.7 Ratio (Not establshd); TRIGLYCERIDE 209 mg/dL (<150); VLDL 42 mg/dL (<40)
[2020-12-20 14:51] LABS: SERUM ASSESSMENT Clear
[2020-12-20 15:00] VITALS: BP 163/93
--- NOTE | 2020-12-20 15:36 | EKG ---
[place] [address] ELECTROCARDIOGRAM REPORT Name: CHARLEY MUÑOZ Room: [place] [address] ADM IN [facility].#: [id number] Admission: 12/20/20 Attend Phys: Volodymyr Tsai Discharge: Date of : 46 Date of Service: 12/20/20 1508 Report #: [id number] THIS REPORT FOR: //name// [facility] Test Date: 2020-12-20 Test Time: 15:08:53 Pat Name: CHARLEY MUÑOZ Department: Room: [place] [address] Gender: M Clerical Adjudicator: STEPHANY : 1950 Requested By: Charley Lui Order Number: [id number] MD: Charley Lui Measurements Intervals [place] Rate: 89 P: -44 VT: 146 QRS: 72 QRSD: 103 T: 80 QT: 432 QTc: 526 Interpretive Statements Sinus rhythm Low voltage, precordial leads Nonspecific T abnrm, anterolateral leads Minimal ST elevation, inferior leads Prolonged QT interval Compared to ECG 12/20/2020 09:44:22 rate has slowed Electronically Signed On 12-20-2020 15:35:52 CDT by Charley Lui [email or web address] <ELECTRONICALLY SIGNED> By: Charley Lui MD, FACC 12/20/20 1535 1508 1508 Charley Lui MD, [facility] /EPI
[2020-12-20 16:45] VITALS: BP 144/74
[2020-12-20 16:56] LABS: URINE BLOOD NEGATIVE (Negative); URINE CLARITY CLEAR; URINE COLOR YELLOW; URINE GLUCOSE-RANDOM 2+ (Negative); URINE KETONES 2+ (Negative); URINE LEUKOCYTES NEGATIVE (Negative); URINE NITRITE NEGATIVE (Negative); URINE PROTEIN NEGATIVE (Negative); URINE UROBILINOGEN 0.2 E.U./dl (0.2-1.0)
[2020-12-20 17:00] LABS: ICTOTEST (BILI CONFIRMATORY) Negative (Negative); URINE BILIRUBIN 1+ (Negative)
[2020-12-20] MEDS ORDERED: GLIPIZIDE 10 MG10 MG PO (17:10)
--- NOTE | 2020-12-20 17:19 | NUR ---
PT ADMITTED WITH SEPSIS. PT ORIENTED TO ROOM. WOUND PICS IN CHART. FALL RISK PRECAUTIONS IN PLACE. CALL LIGHT WITHIN REACH.
--- NOTE | 2020-12-20 18:15 | NUR ---
PT REMAINED ALERT AND ORIENTED. PT RESTING IN BED. ACCU CHECKS COMPLETED. Q 2 TURNS INITIATED. FALL RISK PRECAUTIONS IN PLACE. HOURLY ROUNDING COMPLETED. CALL LIGHT WITHIN REACH.
[2020-12-20 20:00] VITALS: BP 137/73
[2020-12-21] VITALS: BP 142/85
[2020-12-21 04:27] LABS: HEMATOCRIT 43.4 % (42.0-52.0); HEMOGLOBIN 14.2 gm/dL (14.0-18.0); MCH 27.9 pg (26.0-34.0); MCHC 32.7 g/dL (28.0-37.0); MCV 85.2 fL (80.0-100.0); RBC 5.1 mil/uL (4.50-6.00); WBC 11.7 thou/uL (4.0-11.0)
[2020-12-21 04:30] VITALS: BP 155/82
[2020-12-21 05:02] LABS: CALCIUM 8.4 mg/dL (8.5-10.1); CREATININE 0.6 mg/dL (0.6-1.3); POTASSIUM 3.2 mmol/L (3.5-5.1)
--- NOTE | 2020-12-21 07:03 | NUR ---
Alert and oriented x 4 but extremely hard of hearing. He is NSR on tyhe monitor. He has open area to L knee and coccyx that are open to air and woundcare are going to see him today. He had hydrocodone for pain x 3 this shift. He states that it doesn't work well. He has voided per urinal. He slept intermittenly.
[2020-12-21 07:50] VITALS: BP 156/80
[2020-12-21 12:00] VITALS: BP 150/89
--- NOTE | 2020-12-21 13:16 | NUR ---
Pt is A&O. Resides at home with son. Per Pt, he is independent. Pt states he has a walker and scooter but does not need to use either at this time. Hx of [facility] HH. No hx of SNF. Pt having falls at home, therapies to lissa, [facility] briefly discussed rehab v snf post dc, Pt adament that he will return home. Therapy evgio ordered. Wound care to see. Anticipate dc in a few days. CM following.
[2020-12-21] MEDS ORDERED: LIPITOR10 MG PO (14:10)
--- NOTE | 2020-12-21 15:50 | 2DMMODE ---
[place] [address] 2 D/M-MODE ECHOCARDIOGRAM Name: WANDACHARLEY Paco Room: [address] IN [facility]#: [id number] Admission: 12/20/20 Attend Phys: Volodymyr Tsai Discharge: Date of : 46 Date of Service: 12/21/20 1549 Report #: [id number] THIS REPORT FOR: cc: Meredith Garcia Sarah Anne FNP Liston, Michael J. MD [facility] ~ APPROVED REPORT Study performed: 12/21/2020 10:46:34 EXAM: Comprehensive 2D, Doppler, and color-flow Echocardiogram Patient Location: In-Patient Room #: [facility] Status: routine BSA: 2.05 HR: 89 bpm BP: 156/80 mmHg Rhythm: NSR Other Information Study Quality: Adequate Technically limited study due to subcostal views only views obtainable. Indications Abnormal ECG Sepsis 2D Dimensions IVSd: 10.72 (7-11mm) LVOT Diam: 23.45 (18-24mm) LVDd: 46.05 mm PWd: 9.67 (7-11mm) LVDs: 30.06 (25-40mm) Aortic Root: 38.10 mm Pulmonary Valve PV Peak Dave.: 1.28 m/s PV Peak Gr.: 6.53 mmHg Left Ventricle The left ventricle is normal size. There is normal LV segmental wall motion. There is normal left ventricular wall thickness. Left ventricular systolic function is normal. LVEF is 55-60%. This study is not technically sufficient to allow evaluation of the LV diastolic function. [address] [address] 2 D/M-MODE ECHOCARDIOGRAM Name: CHARLEY MUÑOZ Room: [address] IN [facility]#: [id number] Admission: 12/20/20 Attend Phys: Volodymyr Tsai Discharge: Date of : 46 Date of Service: 12/21/20 1549 Report #: [id number] Right Ventricle The right ventricle is normal size. The right ventricular systolic function is normal. Atria The left atrium size is normal. The right atrium size is normal. Aortic Valve Mild aortic valve sclerosis. Trace aortic regurgitation. There is no aortic valvular stenosis. Mitral Valve The mitral valve is normal in structure. There is no mitral valve regurgitation noted. No evidence of mitral valve stenosis. Tricuspid Valve The tricuspid valve is normal in structure. Unable to assess PA pressure. Trace tricuspid regurgitation. Pulmonic Valve The pulmonary valve is normal in structure. There is no pulmonic valvular regurgitation. Great Vessels The aortic root is normal in size. IVC is normal in size and collapses >50% with inspiration. Pericardium There is no pericardial effusion. <Conclusion> The left ventricle is normal size. There is normal left ventricular wall thickness. Left ventricular systolic function is normal. LVEF is 55-60%. Mild aortic valve sclerosis. Trace aortic regurgitation. Trace tricuspid regurgitation. IVC is normal in size and collapses >50% with inspiration. <ELECTRONICALLY SIGNED> By: Yong Chamberlain MD, FACC 12/21/20 1549 1549 1549 Yong Chamberlain MD, FACC /INF
--- NOTE | 2020-12-21 15:57 | NUR ---
WOUND NURSE: PATIENT SEEN FOR WOUND ASSESSMENT. PATIENT HAS A CLUSTER OF 3 LESIONS ON THE SACRUM, COCCYX, AND RIGHT BUTTOCK WITHIN A 6.0 X 8.0 CM AREA. EACH PRESENTS WITH A JURADO LEATHERY FIRMLY ATTACHED LEATHERY ESCHAR. THERE IS NO ACTIVE DRAINAGE NOTED. PATIENT ADMITS TO LYING ON HIS BACK TOO MUCH AND STATES HE DEVELOPED THESE AT HOME. CLEANSED WITH SOAP AND WATER, RINSE, THEN PATTED DRY. APPLIED EXUDERM SATIN TO WOUNDED AREA, THEN SECURED IN PLACE USING SURESITE TRANSPARENT DRESSING. PATIENT WITH SCABS ON BILATERAL KNEEDS AND LEFT ARM AND REPORTS THESE ARE FROM A FALL AT HOME. SCABS ARE ALL STABLE SO PLAN TO LEAVE OPEN TO AIR. PATIENT INSTRUCTED ON MEASURES TO PROMOTE HEALING AND PREVENT FURTHER COMPLICATIONS. STATES HE UNDERSTANDS, BUT HE ISN'T FOLLOWING THROUGH ON OFFLOADING BY STAYING OFF HIS BACK.
[2020-12-21 16:00] VITALS: BP 164/81
--- NOTE | 2020-12-21 17:14 | NUR ---
PATIENT RESTING IN BED. PATIENT HAS COMPLAINTS OF GENERALIZED PAIN, TREATED ADEQUATELY WITH MEDICATION. PATIENT IS AFEBRILE. PATIENT SEEN BY [facility] NURSE THIS AFTERNOON. PATIENT HAS IV ANTIBIOTICS INFUSING ORDERED. PATIENT DENIES ANY NEEDS AT THIS TIME. CALL LIGHT WITHIN REACH.
[2020-12-21 20:06] VITALS: BP 173/87
[2020-12-22] VITALS: BP 160/96
--- NOTE | 2020-12-22 01:55 | NUR ---
Patient alert. Denies pain at this time. Slept most of the night. Had an episode of incontinence. Will continue to care.
[2020-12-22 04:13] LABS: HEMATOCRIT 43.9 % (42.0-52.0); HEMOGLOBIN 13.9 gm/dL (14.0-18.0); MCH 27.2 pg (26.0-34.0); MCHC 31.7 g/dL (28.0-37.0); MCV 85.7 fL (80.0-100.0); MPV 8.3 fl. (7.2-11.1); RBC 5.12 mil/uL (4.50-6.00); RDW-CV 15.3 % (10.5-14.5); WBC 14.6 thou/uL (4.0-11.0)
[2020-12-22 04:22] VITALS: BP 152/79
[2020-12-22 04:30] LABS: CALCIUM 7.8 mg/dL (8.5-10.1); CREATININE 0.6 mg/dL (0.6-1.3); POTASSIUM 3.1 mmol/L (3.5-5.1)
[2020-12-22 07:45] VITALS: BP 185/97
--- NOTE | 2020-12-22 10:22 | NUR ---
WOUND NURSE: PATIENT SEEN REGARDING PRESSURE INJURY ADDRESSED YESTERDAY. PATIENT REPORTS HE HAS TRANSPORTATION TO THE WOUND CARE CENTER HERE AT [facility]. PATIENT SCHEDULED TO BE SEEN NEXT FRIDAY AT 08:30 AM.
[2020-12-22 12:11] VITALS: BP 169/90
--- NOTE | 2020-12-22 15:13 | NUR ---
THIS MOTOR COACH DRIVER IS IN AGREEMENT WITH DOCUMENTATION BY ELIANE SCOTT FOR THIS DAY. CHRISTOPHER TADEOT
[2020-12-22 16:07] VITALS: BP 166/96
--- NOTE | 2020-12-22 16:13 | NUR ---
Anticiapte dc in a few days. Therapies to see. Continue to replace K. CM discussed SNF, Pt hestinant but states he will think about it. CM left VM for Pt's son to discuss dispo. Plan home with HH vs SNF
--- NOTE | 2020-12-22 18:16 | NUR ---
PATIENT RESTING IN BED. PATIENT HAS BEEN UP WITH ASSIST OF ONE WITH GAIT BELT TODAY. PATIENT HAS HAD A FEW INCONTINENT EPISODES TODAY OF BOWEL AND BLADDER. PATIENT HAS GOOD APPETITE. PATIENT HAS HAD COMPLAINTS OF GENERALIZED JOINT PAIN, TREATED ADEQUATELY WITH MEDICATION. PATIENT DENIES ANY NEEDS AT THIS TIME. BED ALALRM ON. CALL LIGHT WITHIN REACH.
[2020-12-22 20:11] VITALS: BP 120/85
[2020-12-23 00:42] VITALS: BP 172/80
[2020-12-23 04:32] VITALS: BP 171/94
[2020-12-23 05:27] LABS: HEMATOCRIT 43.7 % (42.0-52.0); HEMOGLOBIN 14.3 gm/dL (14.0-18.0); MCH 27.8 pg (26.0-34.0); MCHC 32.8 g/dL (28.0-37.0); MCV 84.7 fL (80.0-100.0); MPV 8.2 fl. (7.2-11.1); RBC 5.15 mil/uL (4.50-6.00); RDW-CV 14.8 % (10.5-14.5); WBC 12.6 thou/uL (4.0-11.0)
[2020-12-23 05:32] LABS: CALCIUM 7.9 mg/dL (8.5-10.1); CREATININE 0.6 mg/dL (0.6-1.3); POTASSIUM 3.7 mmol/L (3.5-5.1)
--- NOTE | 2020-12-23 07:25 | NUR ---
CHANGE OF SHIFT REPORT GIVEN PATIENT IN BED ASLEEP ASSUMED PATIENT CARE
[2020-12-23 08:00] VITALS: BP 178/96
[2020-12-23 11:56] VITALS: BP 157/92
[2020-12-23 19:47] VITALS: BP 166/80
[2020-12-23 20:00] VITALS: BP 152/75
[2020-12-24] VITALS (7 sets, daily range): BP systolic 140–191; BP diastolic 74–105
--- NOTE | 2020-12-24 04:55 | NUR ---
PATIENT HAS REMAINED ALERT AND ORIENTED X 3-4. RESTING AT INTERVALS ON HOURLY ROUNDS. TURNED Q2H. DRESSING REPLACED RIGHT BUTTOCKS. IMCONT OF STOOL X 2 AND URINE X 2. ALSO USING URINAL WITH LARGE AMOUNTS OUTPUT. NAUSEA DURING THE NIGHT. MEDICATED WITH ZOFRAN WITH SOME IMPROVEMENT. REQUESTED SNACKS X 2 OVERNIGHT. MEDICATED X 3 THIS SHIFT FOR GENERALIZED ARTHRITIS PAIN. VITAL SIGNS STABLE. MEDS/ANTIBIOTICS/IVF'S PROVIDED ORDERED. FALL PRECAUTIONS IN PLACE. CONTINUE TO MONITOR.
--- NOTE | 2020-12-24 07:25 | NUR ---
CHANGE OF SHIFT BEDSIDE REPORT GIVEN PATIENT SEEN AT BEDSIDE, IN BED ASLEEP ASSUMED PATIENT CARE
[2020-12-25] VITALS: BP 171/91
[2020-12-25 04:29] VITALS: BP 187/104
[2020-12-25 04:54] VITALS: BP 193/92
--- NOTE | 2020-12-25 06:14 | NUR ---
PATIENT HAS REMAINED ALERT AND ORIENTED X 3. FORGETFUL AT TIMES. HAS HAD INCONT BM Q2H THIS SHIFT. MEDS/ANTIBIOTICS PER ORDER. WOUND CARE COMPLETED. VITAL SIGNS STABLE WITH HYPERTENSION. PATIENT REQUESTS SNACKS MULTIPLE TIMES. ENCOURAGED TO TURN BUT PRETTY MUCH DOES HAS HE SEES FIT. FALL PRECAUTIONS IN PLACE. CONTINUE TO MONITOR.
[2020-12-25 08:00] VITALS: BP 165/83
[2020-12-25] MEDS ORDERED: LEVOFLOXACIN500 MG PO (09:49)
[2020-12-25] MEDS ORDERED: HYDROCHLOROTHIA25 M1 PO (09:50)
[2020-12-25 10:22] VITALS: BP 165/83
[2020-12-25 12:00] VITALS: BP 122/72
--- NOTE | 2020-12-25 13:16 | NUR ---
ASSUMED CARE OF PT AT 0730. PT A&0X4, IRRITABLE AND GROUCHY. STATING I WANT TO GO HOME NOW. COMPLAINS OF GENERALIZED PAIN-TREATED WITH PRN NORCO WITH PARTIAL RELIEF. TRACING SR ON THE CONTENT CREATION MANAGER. ON RA SAT UPPER 90'S DENIES ANY SHORTNESS OF BREATH. PT UP WITH SBA TO BATHROOM. DR BETANCOURT HERE TO SEE PT. ORDERS RECEIVED FOR DISCHARGE. DISCHARGE INSTRUCTIONS, CARE NOTES, E SCRIPTS AND FOLLOW UP APPTS GIVEN TO PT. PT COMMUNICATES UNDERSTANDING OF DISCHARGE TEACHING. IV AND CONTENT CREATION MANAGER REMOVED. PT DISCHARGED WITH ALL BELONGINGS AND PAPERWORK VIA WHEELCHAIR WITH NURSING STAFF TO SONS OWN PERSONAL VEHICLE. PT REFUSED DISCHARGE PICTURES STATING "THEY JUST TOOK PICTURES THE OTHER DAY, I NEED TO GET THE HELL OUT OF HERE".
--- NOTE | 2020-12-25 13:35 | NUR ---
Pt declined HH. CM attempted to contact son x2 with no luck. Pt discharging to home, will contact his PCP if he changes his mind about HH.
== END 2020-12-25 13:18 | disposition home health service (06) | DRG 871 ==
LOC: M.ERS 08:41 → M.TBA-ER 10:36 → M.2W 10:36 → M.TBA-ER 11:27 → M.2W 16:57
PROVIDERS: Emergency Medicine; Family Medicine; Internal Medicine Cardiovascular Disease; ADMIT Internal Medicine; ATTEND Internal Medicine
DX: A41.9 Sepsis, unspecified organism (principal); J18.9 Pneumonia, unspecified organism; I21.A1 Myocardial infarction type 2; E87.1 Hypo-osmolality and hyponatremia; I10 Essential (primary) hypertension; E11.9 Type 2 diabetes mellitus without complications; K21.9 Gastro-esophageal reflux disease without esophagitis; G89.29 Other chronic pain; M54.5 Low back pain; E78.5 Hyperlipidemia, unspecified; F17.200 Nicotine dependence, unspecified, uncomplicated; Z20.822 Contact with and (suspected) exposure to COVID-19; Z79.84 Long term (current) use of oral hypoglycemic drugs; Z98.1 Arthrodesis status; Z79.82 Long term (current) use of aspirin; Z79.899 Other long term (current) drug therapy; Z88.5 Allergy status to narcotic agent; Z88.8 Allergy status to other drugs, medicaments and biological substances; Z90.49 Acquired absence of other specified parts of digestive tract

== ENCOUNTER 2021-04-15 12:11 | Inpatient (IN) | payer OTHER ==
[~2021-04-15] VITALS: Ht 172.7 cm; Wt 75.7 kg
[~2021-04-15 12:11] MED LIST changes: +ASPIRIN EC81 M1 PO; +HYDROCHLOROTHIA25 M1 PO; +LISINOPRIL-HCT1 EAC1 PO; +TOPROL XL25 MG PO
[2021-04-15 12:12] VITALS: BP 129/84
[2021-04-15] MEDS ORDERED: ASPIRIN PO (12:16)
[2021-04-15 12:48] LABS: ABSOLUTE BASOPHILS 0.1 thou/uL (0.0-0.2); ABSOLUTE EOSINOPHILS 0.1 thou/uL (0.0-0.7); ABSOLUTE MONOCYTES 0.7 thou/uL (0.0-1.2); ABSOLUTE NEUTROPHILS 6.7 thou/uL (1.6-8.1); BASOPHILS 0.6 %; EOSINOPHILS 0.7 %; HEMOGLOBIN 13.8 gm/dL (14.0-18.0); LYMPHOCYTES 28.2 %; MCH 28.4 pg (26.0-34.0); MCHC 32.8 g/dL (28.0-37.0); MCV 86.5 fL (80.0-100.0); MONOCYTES 6.9 %; NUCLEATED RBCS 0 /100WBC; PLATELET COUNT* 435 thou/uL (150-400); POLYS 63.6 %; RBC 4.85 mil/uL (4.50-6.00); RDW-CV 15.3 % (10.5-14.5); WBC 10.6 thou/uL (4.0-11.0)
[2021-04-15 12:54] LABS: URINE BLOOD 3+ (Negative); URINE CLARITY SL CLOUDY; URINE COLOR YELLOW; URINE GLUCOSE-RANDOM 2+ (Negative); URINE KETONES NEGATIVE (Negative); URINE LEUKOCYTES-REFLEX NEGATIVE (Negative); URINE NITRITE-REFLEX NEGATIVE (Negative); URINE PROTEIN 1+ (Negative); URINE SPECIFIC GRAVITY >= 1.030 (1.005-1.030)
[2021-04-15 12:54] LABS: CALCIUM 8.8 mg/dL (8.5-10.1); POTASSIUM 3.8 mmol/L (3.5-5.1)
[2021-04-15 12:59] LABS: ICTOTEST (BILI CONFIRMATORY) Negative (Negative); URINE BILIRUBIN 1+ (Negative)
[2021-04-15 13:06] LABS: ALBUMIN 2.9 g/dL (3.4-5.0); TOTAL BILIRUBIN 1.1 mg/dL (<0.1-1.0); TOTAL PROTEIN 6.7 g/dL (6.4-8.2)
[2021-04-15 13:13] LABS: AMP/METHAMP Negative (Negative); BARBITURATES Negative (Negative); BENZODIAZEPINES Negative (Negative); COCAINE Negative (Negative); METHADONE Negative (Negative); OPIATES POSITIVE (Negative); PCP Negative (Negative); THC Negative (Negative)
[2021-04-15 13:14] LABS: HYALINE CASTS 4-10 Moderate /LPF (None Seen)
[2021-04-15 13:15] LABS: SQUAMOUS NONE SEEN /LPF (0-3); URINE WBC-REFLEX 0-5 Rare /HPF (0-5)
[2021-04-15 13:16] LABS: BACTERIA-REFLEX 1-9 Few /HPF (None Seen); CRYSTALS None Seen /LPF (None Seen)
--- NOTE | 2021-04-15 13:58 | EKG ---
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: [facility] : 1950 Requested By: Andrey Hamilton Order Number: [id number] MD: Yong Chamberlain Measurements Intervals Granger Rate: 79 P: 9 GA: 152 QRS: 22 QRSD: 82 T: 69 QT: 395 QTc: 453 Interpretive Statements Sinus rhythm Anterior infarct, old Compared to ECG 12/20/2020 15:08:53 Myocardial infarct finding now present ST (T wave) deviation no longer present Prolonged QT interval no longer present Electronically Signed On 04-15-2021 13:58:26 SLAT GRADER by Yong Chamberlain [email or web address] <ELECTRONICALLY SIGNED> By: Yong Chamberlain MD, FACC 04/15/21 1358 1215 1215 Yong Chamberlain MD, [facility] /EPI
[2021-04-15 18:00] VITALS: BP 101/69
--- NOTE | 2021-04-15 19:16 | NUR ---
SISTER BALWINDER CALLED STATING PATIENT HAS LOST A LOT OF WEIGHT SINCE LAST YEAR. A SIGNIFICANT AMOUNT ROUGHLY 50 POUNDS UNINTENTIONALLY
[2021-04-15 21:45] VITALS: BP 115/55
--- NOTE | 2021-04-15 22:18 | NUR ---
PT BS-51, ATTEMPTED TO PROVIDE JUICE; UNABLE TO ARROUSE TO CONSUME; ORDERS PER PROTOCAL PLACED 25 GM OF DEXTROSE IV; WILL CONTINUE TO MONITOR PT CLOSELY
--- NOTE | 2021-04-15 22:35 | NUR ---
TRANSFER PATIENT INTO INPATIENT BED, AND PATIENT WAS CONFUSED. CHECKED BLOOD SUGAR WAS 59. PROTOCOL ORDER AND PATIENT RECIEVED DEXTROSE VIA IV. PATIENT WAS NOT ABLE TO TOLERATE ORAL INTAKE
[2021-04-16] VITALS (7 sets, daily range): BP systolic 99–168; BP diastolic 52–78
[2021-04-16 00:44] LABS: ABSOLUTE BASOPHILS 0.1 thou/uL (0.0-0.2); ABSOLUTE EOSINOPHILS 0.1 thou/uL (0.0-0.7); ABSOLUTE LYMPHOCYTES 2.4 thou/uL (0.8-5.3); ABSOLUTE MONOCYTES 1.1 thou/uL (0.0-1.2); ABSOLUTE NEUTROPHILS 10.6 thou/uL (1.6-8.1); BASOPHILS 0.6 %; EOSINOPHILS 0.6 %; HEMOGLOBIN 13.4 gm/dL (14.0-18.0); LYMPHOCYTES 16.9 %; MCH 27.6 pg (26.0-34.0); MCV 86.2 fL (80.0-100.0); MONOCYTES 7.9 %; MPV 7.6 fl. (7.2-11.1); NUCLEATED RBCS 0 /100WBC; PLATELET COUNT* 398 thou/uL (150-400); RBC 4.87 mil/uL (4.50-6.00); RDW-CV 15.3 % (10.5-14.5); WBC 14.4 thou/uL (4.0-11.0)
[2021-04-16 01:04] LABS: CALCIUM 8.5 mg/dL (8.5-10.1); CREATININE 0.8 mg/dL (0.6-1.3); POTASSIUM 4.3 mmol/L (3.5-5.1)
--- NOTE | 2021-04-16 13:21 | NUR ---
DR GUERRIER AT , NOTIFIED OF PT STATUS. NEW PHYSICIAN'S ORDERS RECEIVED
--- NOTE | 2021-04-16 14:25 | NUR ---
NILSON RN, WOUND CARE NURSE COMPLETE WOUND CARE AND APPLIED WOUND VAC ON PT
--- NOTE | 2021-04-16 14:28 | NUR ---
TELE MONITOR PLACED AT PT BS, DR CALLAHAN ASSESSED PT AT BS. NILSON RN AND BARBARA FLORES AT BS
[2021-04-16 15:11] LABS: ALBUMIN 2.5 g/dL (3.4-5.0); CALCIUM 8.1 mg/dL (8.5-10.1); CREATININE 0.8 mg/dL (0.6-1.3); TOTAL BILIRUBIN 0.9 mg/dL (<0.1-1.0); TOTAL PROTEIN 6.2 g/dL (6.4-8.2)
[2021-04-16 15:16] LABS: POTASSIUM 3.1 mmol/L (3.5-5.1)
--- NOTE | 2021-04-16 17:00 | 2DMMODE ---
[place] [address] 2 D/M-MODE ECHOCARDIOGRAM Name: CHARLEY MUÑOZ Room: [address] IN .Ashlie.#: [id number] Admission: 04/15/21 Attend Phys: Robin Webb, Discharge: Date of : 46 Date of Service: 04/16/21 1659 Report #: [id number] THIS REPORT FOR: cc: Meredith Garcia Sarah Anne FNP Blick, David R. MD [facility] ~ APPROVED REPORT Study performed: 04/16/2021 16:06:26 EXAM: Comprehensive 2D, Doppler, and color-flow Echocardiogram Patient Location: In-Patient Room #: ER Status: routine BSA: 1.91 HR: 75 bpm BP: 126/74 mmHg Rhythm: NSR Other Information Study Quality: Fair Technically limited study due to NO PARASTERNAL VIEWS. Indications CVA/TIA Echo Enhancing Agent Indication: Rule out Shunt Agent(s) / Amount(s) Used: Agitated Saline 10 cc 2D Dimensions IVSd: 13.69 (7-11mm) LVOT Diam: 24.09 (18-24mm) LVDd: 46.23 mm PWd: 10.98 (7-11mm) Volumes Left Atrial Volume (Systole) LA ESV Index: 33.00 mL/m2 Aortic Valve AoV Peak Dave.: 1.11 m/s AO Peak Gr.: 4.95 mmHg LVOT Max P.36 mmHg AO Mean Gr.: 3.06 mmHg LVOT Mean P.[address] [address] 2 D/M-MODE ECHOCARDIOGRAM Name: CHARLEY MUÑOZ Room: [address] IN [facility]#: [id number] Admission: 04/15/21 Attend Phys: Robin Webb, Discharge: Date of : 46 Date of Service: 04/16/21 1659 Report #: [id number] LVOT Max V: 1.26 m/s AO V2 VTI: 22.32 cm LVOT Mean V: 0.79 m/s YOLY (VTI): 5.03 cm2 LVOT V1 VTI: 24.62 cm Mitral Valve E/A Ratio: 0.88 MV Decel. Time: 226.68 ms MV E Max Dave.: 0.67 m/s MV PHT: 65.74 ms MVA (PHT): 3.35 cm2 TDI E/Lateral E': 5.58 E/Medial E': 8.38 Medial E' Dave.: 0.08 m/s Lateral E' Dave.: 0.12 m/s Pulmonary Valve RVOT VTI: 255.93 mm Left Ventricle The left ventricle is normal size. There is normal LV segmental wall motion. Borderline concentric left ventricular hypertrophy. Left ventricular systolic function is normal. The left ventricular ejection fraction is within the normal range. LVEF is 65-70%. Grade I - abnormal relaxation pattern. Right Ventricle The right ventricle is normal size. The right ventricular systolic function is normal. Atria Left atrium is mildly dilated. The interatrial septum is intact with no evidence for an atrial septal defect. The right atrium size is normal. Aortic Valve Mild aortic valve sclerosis. No aortic regurgitation is present. There is no aortic valvular stenosis. Mitral Valve The mitral valve is normal in structure. There is no mitral valve regurgitation noted. No evidence of mitral valve stenosis. Tricuspid Valve The tricuspid valve is normal in structure. Unable to assess PA pressure. Trace tricuspid [place] [address] 2 D/M-MODE ECHOCARDIOGRAM Name: CHARLEY MUÑOZ Room: [address] IN [facility]#: [id number] Admission: 04/15/21 Attend Phys: Robin Webb, Discharge: Date of : 46 Date of Service: 04/16/21 1659 Report #: [id number] Pulmonic Valve The pulmonary valve is normal in structure. There is no pulmonic valvular regurgitation. Great Vessels The aortic root is normal in size. IVC is normal in size and collapses >50% with inspiration. Pericardium There is no pericardial effusion. <Conclusion> Borderline concentric left ventricular hypertrophy. LVEF is 65-70%. Left atrium is mildly dilated. Mild aortic valve sclerosis. The interatrial septum is intact with no evidence for an atrial septal defect. <ELECTRONICALLY SIGNED> By: Charley Lui MD, FACC 04/16/21 1659 58 58 Charley Lui MD, FACC /INF
--- NOTE | 2021-04-16 19:17 | NUR ---
AROUND 0830 THIS PT WAS GIVEN A SIP OF WATER DUE TO PT STATES HE WAS THIRSTY. PT SIPPED WATER THREW A STRAW. AFTER SWALLOWING A SIP OF WATER, PT HAD TROUBLE CLEARING HIS THROAT, COUGHING, AND GAGGING LIKE HE WAS CHOKING. O2 SATURATIONS DECREASED IN THE MID 80S. I HAD TO USE SUCTION TO CLEAR AIRWAY AND PLACE PT ON OXYGEN. PT SATURATIONS CAME UP TO 95%. MD CALL WAS PLACED. DR GUERRIER IN ER/BEDSIDE AROUND 1330 AND WAS NOTIFIED OF OCCURENCE OF EVENTS, NEW ORDERS RECEIVED FOR PT TO HAVE A SWALLOW STUDY AND CONTINUE NPO STATUS
[2021-04-17 02:06] LABS: GLYCOHEMOGLOBIN (HGB A1C) 10.8 % (4.8-5.6)
[2021-04-17 04:25] LABS: ABSOLUTE BASOPHILS 0.1 thou/uL (0.0-0.2); ABSOLUTE EOSINOPHILS 0.1 thou/uL (0.0-0.7); ABSOLUTE LYMPHOCYTES 1.9 thou/uL (0.8-5.3); ABSOLUTE MONOCYTES 0.8 thou/uL (0.0-1.2); ABSOLUTE NEUTROPHILS 7.6 thou/uL (1.6-8.1); BASOPHILS 0.9 %; EOSINOPHILS 1.1 %; HEMATOCRIT 39.2 % (42.0-52.0); HEMOGLOBIN 12.8 gm/dL (14.0-18.0); LYMPHOCYTES 17.8 %; MCH 28.3 pg (26.0-34.0); MCHC 32.8 g/dL (28.0-37.0); MCV 86.4 fL (80.0-100.0); MONOCYTES 7.8 %; MPV 8.4 fl. (7.2-11.1); NUCLEATED RBCS 0 /100WBC; PLATELET COUNT* 371 thou/uL (150-400); POLYS 72.4 %; RBC 4.53 mil/uL (4.50-6.00); RDW-CV 15.4 % (10.5-14.5); WBC 10.6 thou/uL (4.0-11.0)
[2021-04-17 04:26] VITALS: BP 138/8
--- NOTE | 2021-04-17 04:42 | NUR ---
PT ADMIT TO ROOM 203. PT NONAMBULATORY. ALERT ORIENTED TO SELF ONLY. MOTOR ADJUSTER TRACING SR. ON RA. QUEVEDO DRAINING YELLOW PLACED FOR WOUNDS. WOUND VAC -125 TO COCCYX. WOUND CARE CONSULTED IN ED AND HAS SEEN PT.
[2021-04-17 04:46] LABS: ALBUMIN 2.2 g/dL (3.4-5.0); CALCIUM 8.2 mg/dL (8.5-10.1); CREATININE 0.5 mg/dL (0.6-1.3); TOTAL BILIRUBIN 0.8 mg/dL (<0.1-1.0); TOTAL PROTEIN 5.6 g/dL (6.4-8.2)
[2021-04-17 05:19] LABS: PREALBUMIN 12.5 mg/dL (18.0-35.7)
[2021-04-17 05:58] LABS: CHOLESTEROL 119 mg/dL (<200); HDL CHOLESTEROL 40 mg/dL (>40); LDL CHOLESTEROL 58 mg/dL (<100); SERUM ASSESSMENT Clear; TRIGLYCERIDE 105 mg/dL (<150); VLDL 21 mg/dL (<40)
--- NOTE | 2021-04-17 07:15 | NUR ---
CHANGE OF SHIFT BEDSIDE REPORT GIVEN PATIENT SEEN AT BEDSIDE, IN BED RSTING ASSUMED PATIENT CARE
[2021-04-17 08:00] VITALS: BP 141/83
--- NOTE | 2021-04-17 10:08 | NUR ---
CM ASSESSMENT: PT A&O. PT KOTZEBUE, BUT ABLE TO ANSWER CM ASSESSMENT QUESTIONS APPROPRIATELY. PT NORMALLY INDEPENDENT WITH ADL'S. PT RESIDES AT HOME WITH SON CHARLEY. PT USES A WALKER OR SCOOTER FOR MOBILITY. [facility]. PT HAS 0 HX OF SNF. PT CURRENTLY ON IV ABT'S AND USING WOUND VAC. PT MAY BENEFIT FROM HH AT D/C, BUT CM D/C PLANNING NEEDS ARE TBD AT THIS TIME. CM WILL REMAIN AVAILABLE TO ASSIST AND FOLLOW NEEDED.
[2021-04-17 12:34] VITALS: BP 139/74
--- NOTE | 2021-04-17 13:24 | NUR ---
WOUND NURSE: PATIENT SEEN TO ADDRESS FAILED WOUND VAC DRESSING WHICH THE TRANSPARENT DRAPE CAME LOOSE. REMOVED THE DRESSING AND CLEANSED WITH WOUND CLEANSER PRIOR TO REPLACING THE DRESSING. APPLIED EXUDERM TO PERIWOUND FOR MANAGEMENT OF IRRITATED SKIN AND TO IMPROVE THE SEAL. WOUND VAC DRESSING REAPPLIED PRESCRIBED. PATIENT IS NOT TEACHEABLE. THERE IS A MODERATE AMOUNT OF SEROUSANGUINOUS DRAINAGE IN THE CANNISTER. OBTAINED C&S FROM COCCYX WOUND WITH THIS DRESSING CHANGE AND TOOK TO LAB.
[2021-04-17 16:43] VITALS: BP 152/79
[2021-04-17 20:00] VITALS: BP 141/81
[2021-04-18 01:11] VITALS: BP 188/96
[2021-04-18 05:17] LABS: HEMATOCRIT 34.9 % (42.0-52.0); HEMOGLOBIN 11.4 gm/dL (14.0-18.0); MCH 27.8 pg (26.0-34.0); MCHC 32.6 g/dL (28.0-37.0); MCV 85.3 fL (80.0-100.0); MPV 8.6 fl. (7.2-11.1); RBC 4.1 mil/uL (4.50-6.00); RDW-CV 15.3 % (10.5-14.5); WBC 11.6 thou/uL (4.0-11.0)
[2021-04-18 05:37] LABS: CALCIUM 7.8 mg/dL (8.5-10.1); CREATININE 0.5 mg/dL (0.6-1.3); POTASSIUM 3.7 mmol/L (3.5-5.1)
[2021-04-18 06:11] VITALS: BP 196/116
[2021-04-18 08:00] VITALS: BP 176/107
--- NOTE | 2021-04-18 09:51 | NUR ---
WOUND NURSE: CHECKED ON WOUND VAC AND IT IS FUNCTIONING PROPERLY.
[2021-04-18 11:30] VITALS: BP 191/104
[2021-04-18 16:00] VITALS: BP 156/88
--- NOTE | 2021-04-18 17:50 | NUR ---
THIS RN AGREES WITH THE CHARTING COMPLETED BY ZAK WEEKS LPN ON 04/18/21
--- NOTE | 2021-04-18 19:24 | NUR ---
MRI RESULTS NOTED. HOSPITALIST NOTIFIED. AWAITING CALL BACK AT THIS TIME. REPORT GIVEN TO SANDRA MANDEL.
[2021-04-18 19:50] VITALS: BP 175/96
[2021-04-19 03:50] VITALS: BP 165/94
[2021-04-19 04:09] LABS: HEMOGLOBIN 11.3 gm/dL (14.0-18.0); MCH 27.5 pg (26.0-34.0); MCHC 32.4 g/dL (28.0-37.0); MPV 8.2 fl. (7.2-11.1); RBC 4.12 mil/uL (4.50-6.00); RDW-CV 15.3 % (10.5-14.5); WBC 11.1 thou/uL (4.0-11.0)
--- NOTE | 2021-04-19 04:28 | NUR ---
PT A&O X 1-2. ON RA. MEDS GIVEN ORDERED. SNACKS GIVEN PER PT REQUEST. WOUND VAC IN PLACE. NO C/O PAIN. PT SLEPT OFF AND ON. CALL LIGHT WITHIN REACH. QUEVEDO CATH IN PLACE. WILL CONTINUE TO MONITOR.
[2021-04-19 04:54] LABS: CALCIUM 7.8 mg/dL (8.5-10.1); CREATININE 0.6 mg/dL (0.6-1.3); POTASSIUM 3.3 mmol/L (3.5-5.1)
[2021-04-19 08:00] VITALS: BP 135/72
[2021-04-19 11:30] VITALS: BP 131/70
[2021-04-19 15:35] VITALS: BP 172/89
[2021-04-19 20:39] VITALS: BP 165/85
[2021-04-20] VITALS: BP 155/73
[2021-04-20 04:00] VITALS: BP 169/87
--- NOTE | 2021-04-20 05:29 | NUR ---
PT IS ABLE TO COMMUNICATE HIS NEEDS TO STAFF WITH MINOR DIFFICULTY; HE IS CONFUSED AND [id number]. HE HAS DENIED THE NEED FOR PAIN MEDICATION UP TO THIS TIME. WOUND VAC TO SACRAL WOUND HAD SMALL LEAK OVERNIGHT; LEAK STOPPED AND VAC APPEARS PATENT UP TO THIS TIME. QUEVEDO HAS BEEN PATENT UP TO THIS TIME.
--- NOTE | 2021-04-20 09:28 | NUR ---
PLAN OF CARE: PHYSICIAN INFORMS OF RECOMMENDATION FOR PT TO D/C TO SNF AT D/C. PT DECLINES THIS DESPITE MULTIPLE CONVERSATIONS AND EDUCATION. PT INFORMS OF PLAN TO RETURN HOME WITH HH AT D/C. PT CURRENTLY HAS WOUND VAC AND IT IS UNCLEAR AT THIS TIME IF PT WILL NEED IV ABT'S VS ORAL. CM WILL REMAIN AVAILABLE TO ASSIST AND FOLLOW NEEDED.
--- NOTE | 2021-04-20 10:59 | NUR ---
WOUND CARE: WOUND VAC DRESSING CHANGED. 1 SPONGE REMOVED ONE PUT BACK IN. BRIDGED TO RIGHT HIP/THIGH AREA. CANNISTER ALSO CHANGED. REMOVED CANNISTER HAD 150ML RED DRAINAGE. DENIES PAIN. TOLERATED WELL. FABBY OTHER NEEDS AT THIS TIME
[2021-04-20 12:00] VITALS: BP 136/76
[2021-04-20 16:00] VITALS: BP 156/87
[2021-04-20 20:44] VITALS: BP 162/84
[2021-04-20 23:27] VITALS: BP 172/82
[2021-04-21 04:00] VITALS: BP 156/77
--- NOTE | 2021-04-21 08:56 | NUR ---
PT IS ABLE TO COMMUNICATE HIS NEEDS TO STAFF WITH MINOR DIFFICULTY; HE IS VERY [id number] AND CAN BE CONFUSED AT TIMES. CURRENT PAIN MEDICATION REGIMEN HAS BEEN ADEQAUTE FOR CONTROLLING HIS PAIN UP TO THIS TIME. QUEVEDO HAS BEEN PATENT UP TO 0700 THIS MORNING.
[2021-04-21 09:15] VITALS: BP 142/72
[2021-04-21 12:00] VITALS: BP 142/73
[2021-04-21 16:00] VITALS: BP 156/85
[2021-04-21 20:00] VITALS: BP 166/90
[2021-04-22] VITALS: BP 160/80
--- NOTE | 2021-04-22 02:56 | NUR ---
ASSESSMENT: PT REMAIN ALERT TO NAME ONLY. DOES NO PROPERY ANSWER QUESTIONS OF PLACE, SITUATION AND TIME. NOT SO EASY TO REORIENT TO PLACE, TIME AND SITUATION. PT HAD SEVERAL SMALL STOOLS. NOT LIQUIDY, NOR FOUL SMELLING. VSS, AFEBRILE A-V PACED AND AFIB PER MONITOR. PT WAS VERY RESTLESS, AGITATED AND WAS NOT BEING COOPERATIVE ABOUT REMAINING IN BED. Kim MORGAN WAS NOTIFIED AND A ONE TIME BENEDRYL 25 MG WAS GIVEN WITH GOOD RESULTS. PT IS CURRENTLY SLEEPING AND APPEARS MORE RELAXED. QUEVEDO PATENT WITH YELLOW OUTPUT. LUNG SOUNDS COARSE-DIM. POOR PROGRESS TOWARDS DC GOALS. WILL CONTINUE TO MONITOR.
--- NOTE | 2021-04-22 03:21 | NUR ---
ASSESSMENT: PT REMAIN ALERT AND ORIENT TIMES TWO, FORGETFUL AND MENOMINEE BILATERALLY. VSS, AFEBRILE. SR PER MONITOR. QUEVEDO PATENT. WOUND VAC LEAKING REENFORCED THIS SHIFT TWICE. PRN MELATONIN GIVEN WITH POOR RESULTS. PT WATCHED TELEVISION MOST OF THE NIGHT. SLOW PROGRESS TOWARDS DC GOALS, WILL CONTINUE TO MONITOR
[2021-04-22 04:00] VITALS: BP 180/93
[2021-04-22 09:15] VITALS: BP 107/88
[2021-04-22 09:19] LABS: ABSOLUTE BASOPHILS 0.1 thou/uL (0.0-0.2); ABSOLUTE EOSINOPHILS 0.3 thou/uL (0.0-0.7); ABSOLUTE MONOCYTES 0.9 thou/uL (0.0-1.2); BASOPHILS 1.1 %; EOSINOPHILS 3.5 %; HEMOGLOBIN 12.8 gm/dL (14.0-18.0); LYMPHOCYTES 32.2 %; MCH 27.9 pg (26.0-34.0); MCHC 32.8 g/dL (28.0-37.0); MCV 85.1 fL (80.0-100.0); MONOCYTES 9.7 %; NUCLEATED RBCS 0 /100WBC; PLATELET COUNT* 462 thou/uL (150-400); POLYS 53.5 %; RBC 4.58 mil/uL (4.50-6.00); RDW-CV 15.5 % (10.5-14.5); WBC 9.3 thou/uL (4.0-11.0)
[2021-04-22 09:33] LABS: CALCIUM 7.9 mg/dL (8.5-10.1); CREATININE 0.7 mg/dL (0.6-1.3); POTASSIUM 3.5 mmol/L (3.5-5.1); TOTAL BILIRUBIN 0.4 mg/dL (<0.1-1.0); TOTAL PROTEIN 5.8 g/dL (6.4-8.2)
[2021-04-22 16:00] VITALS: BP 165/82
[2021-04-22 19:56] VITALS: BP 132/69
--- NOTE | 2021-04-23 01:07 | NUR ---
AT APPROX 0100 PATIENT'S WOUND VAC HAD TO BE DC'D. WOUND VAC ALARMING WITH LEAKAGE AND BLOCKAGE SEVERAL TIMES. SEVERAL ATTEMPTS MADE FOR CORRECTION; DRSG REINFORCED, THEN REPLACED, THEN REINFORCED AGAIN. FIX LASTED ABOUT 45 MIN THEN SAME ISSUES. WOUND VAC DISCONTINUED, WOUND CLEANSED WITH WOUND CLEANSER, LLIGHTLY PACKED WITH AQUACEL AG, AND THEN MEPILEX. PHYSICIAN NOTIFED BY YOU CALL AT 0105.
[2021-04-23 05:47] VITALS: BP 172/82
[2021-04-23 08:44] VITALS: BP 193/84
[2021-04-23] MEDS ORDERED: CLOPIDOGREL75 MG PO (10:37)
[2021-04-23] MEDS ORDERED: LIPITOR 40 MG T40 M1 PO (10:37)
[2021-04-23 14:36] VITALS: BP 193/84
[2021-04-23 14:39] VITALS: BP 193/84
--- NOTE | 2021-04-23 15:29 | NUR ---
WOUND NURSE: PATIENT SEEN FOR FOLLOW UP WOUND CARE AND ASSESSMENT TO [facility] WOUND. PATIENT DID NOT HAVE A DRESSING ON AT 0830 THIS MORNING SO REPLACED THE WOUND VAC DRESSING PRESCRIBED. PATIENT'S WOUND MEASURES 5.5 X 1.5 X 2.0 CM AND CONTAINS 3.5 CM UNDERMINING FROM 12 TO 12 O'CLOCK. CONTAINS RED, MINIMALLY GRANULATED TISSUE AND EXPOSED TENDON AND MUSCLE. MODERATE AMOUNT OF SEROUSANGUINOUS DRAINAGE. CX GREW ORGANISSM, BUT WAS PREVIOUSLY TX'D WITH IV ABX AND WOUND DOES NOT LOOK INFECTED AT THIS TIME. IMPROVED PERIWOUND TISSUE COMPARED TO LAST WEEK. PATIENT TO DISCHARGE TODAY AND APPLIED FOR [facility] WOUND VAC, BUT PATIENT IS OUT OF NETWORK SO THIS WAS CANCELLED AND [facility] CONTACTED BY JESSICA HOUSTON AND TO GO HOME WITH ALTERNATE DRESSING AND NPWT TO BE PLACED BY HOME HEALTH ONCE IT'S AVAILABLE. PATIENT HAS APPT TO FOLLOW UP WITH DR. TYSON IN [facility] HERE NEXT FRIDAY AND 799. PATIENT INSTRUCTED, BUT QUESTIONABLE COGNITIVE ABILITY TO COMPREHEND.
[2021-04-23 15:41] VITALS: BP 193/84
--- NOTE | 2021-04-23 16:50 | NUR ---
CM INFORMED OF PLAN FOR PT TO D/C HOME TODAY WITH WOUND VAC. CM INFORMED OF INABILITY TO ARRRANGE WOUND VAC WITH [facility]. CM COMPLETED INITIAL INFO FOR THE WOUND VAC/NEGATIVE PRESSURE DRESSING FORM AND PHYSICIAN SIGNED. CM INFORMED WOUND NURSE, RN, AND CONCRETE TILE MACHINE OPERATOR OF NEED TO ASSIST WITH COMPLETION OF INCOMPLETE INFO (TYPE OF VAC, AND DRESSING NEEDED), AT THIS TIME THE FORM IS INCOMPLETE WITHOUT THIS INFO. CM IS NOT ABLE TO CONFIRM APPROVAL OR DELIVERY OF THE WOUND VAC/NEGATIVE PRESSING DRESSING WITHOUT THIS INFO. WHEN FORM IS COMPLETED IT WILL NEED TO BE FAXED TO [facility]. CM ARRANGED HH FOR THE PT WITH [facility], AND THEY WILL CONTACT THE PT'S SON OR SISTER TO ARRANGE A TIME TO VISIT. CM WILL REMAIN AVAILABLE TO ASSIST AND FOLLOW NEEDED. [facility] FAX: [phone] [facility] PHONE: [phone]
--- NOTE | 2021-04-24 18:02 | CON ---
[address] [address] CONSULTATION Name: CHARLEY MUÑOZ Room: [address] IN M.R.#: [id number] Admission: 04/15/21 Attend Phys: Robin Webb MD Discharge: 04/23/21 Date of : 46 Report #: [id number] THIS REPORT FOR: cc: Meredith Garcia Sarah Anne FNP Khosla, Parveen K. MD ~ DATE OF CONSULTATION: 04/17/2021 HISTORY OF PRESENT ILLNESS: This is a 71-year-old male patient who was admitted with confusion. I reviewed all his records and it looks like that confusion was attributed to him taking his pain medication improperly. He has since been seen by Infectious Disease and he has gram-positive cocci and they are evaluating him and awaiting for ID. Here, he has been afebrile throughout his hospitalization. He provided some history. He is hard of hearing and he appeared to be agitated, does not want to be in the hospital. He has been here in April when he has trouble with gallbladder and then he was again here in December and he has progressively declined since that time according to the patient's sister. Sister says he visited him today and to her, he looks back to his normal. But when I examined him, he does very poorly on the memory. Sister thinks that is because of his hearing difficulty and that may be true. REVIEW OF SYSTEMS: Positive for elevated troponin, hypertension, diabetes, decubitus ulcer, but I do not know what that from. She says that he moves around. He has generalized weakness. This was his relevant 14-point review of system. Review of systems also positive for hypertension, cervical perfusion in the past. He has chronic low back pain, but he has refused any intervention in that regard. PAST MEDICAL HISTORY: Positive for what looks like sepsis and even a liver abscess. FAMILY HISTORY: Unremarkable. SOCIAL HISTORY: He smokes, but according to the sister, he does not drink alcohol. He says the same thing. PHYSICAL EXAMINATION: NEUROLOGIC: Indicates he is alert. He says it is February. He was able to tell me the hospital he is in, but he did poorly with memory testing. He was not very cooperative, but he moved all 4 extremities. He was able to walk, but he has difficult time getting up. He has some back pain. He did not do well with the position sense. He has no reflexes in the lower extremities, but I do not know what his baseline is. I could not look at the fundus. He did not cooperate much with anything else. CARDIAC: His cardiac examinations [place] [address] CONSULTATION Name: CHARLEY MUÑOZ Room: [address] IN M.R.#: [id number] Admission: 04/15/21 Attend Phys: Robin Webb MD Discharge: 04/23/21 Date of : 46 Report #: [id number] PULMONARY: He does not appear to be in respiratory difficulty. VITAL SIGNS: He has been afebrile. Blood pressure is 139/74, respirations 17, pulse is 97. LABORATORY DATA: White count was 14.4. It is 10.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 He has some plate in the neck, but it does not look like any other contraindication for MRI. IMPRESSION AND PLAN: Multiple etiologies, which need to be considered in this patient to see if any one of them is the cause of the problem. He may have overdosed himself. We need to see if he has a contamination with a blood culture or if it is real. 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 He has pretty significant record and we would like to review that. More than 50 minutes of time was spent taking care of this patient today and majority was spent counseling and coordinating. <ELECTRONICALLY SIGNED> By: Ron Calderon MD 04/24/21 180 1317 182Ron Calderon MD /nt
== END 2021-04-23 17:00 | disposition home health service (06) | DRG 917 ==
LOC: M.ERS 12:11 → M.TBA-ER 14:02 → M.2W 14:02
PROVIDERS: Family Medicine; Internal Medicine; ADMIT Internal Medicine; ATTEND Internal Medicine
DX: T40.601A Poisoning by unspecified narcotics, accidental (unintentional), initial encounter (principal); A41.89 Other specified sepsis; L89.154 Pressure ulcer of sacral region, stage 4; G92.8 Other toxic encephalopathy; J69.0 Pneumonitis due to inhalation of food and vomit; I63.512 Cerebral infarction due to unspecified occlusion or stenosis of left middle cerebral artery; E87.1 Hypo-osmolality and hyponatremia; F11.20 Opioid dependence, uncomplicated; Z20.822 Contact with and (suspected) exposure to COVID-19; I10 Essential (primary) hypertension; K21.9 Gastro-esophageal reflux disease without esophagitis; G89.29 Other chronic pain; M54.50 Low back pain, unspecified; E11.65 Type 2 diabetes mellitus with hyperglycemia; M47.9 Spondylosis, unspecified; R47.1 Dysarthria and anarthria; F17.210 Nicotine dependence, cigarettes, uncomplicated; R13.10 Dysphagia, unspecified; Z88.6 Allergy status to analgesic agent; Z88.8 Allergy status to other drugs, medicaments and biological substances; Y92.89 Other specified places as the place of occurrence of the external cause; Z79.899 Other long term (current) drug therapy

== ENCOUNTER → 2021-05-02 | Outpatient (CLI) | payer OTHER ==
[~2021-05-02] MED LIST changes: +ASPIRIN PO; +CLOPIDOGREL75 MG PO; +LIPITOR 40 MG T40 M1 PO
== END ==
LOC: M.WC 08:37
PROVIDERS: ATTEND Surgery
DX: E11.622 Type 2 diabetes mellitus with other skin ulcer (principal); L89.154 Pressure ulcer of sacral region, stage 4; L98.492 Non-pressure chronic ulcer of skin of other sites with fat layer exposed; E44.1 Mild protein-calorie malnutrition; F17.290 Nicotine dependence, other tobacco product, uncomplicated; Z68.20 Body mass index [BMI] 20.0-20.9, adult; Z86.73 Personal history of transient ischemic attack (TIA), and cerebral infarction without residual deficits; Z79.84 Long term (current) use of oral hypoglycemic drugs; Z79.82 Long term (current) use of aspirin; Z79.899 Other long term (current) drug therapy

== ENCOUNTER → 2021-05-09 | Outpatient (CLI) | payer OTHER | LOC: M.WC 07:58 | PROVIDERS: ATTEND Surgery | DX: E11.622 Type 2 diabetes mellitus with other skin ulcer (principal); L89.154 Pressure ulcer of sacral region, stage 4; L98.492 Non-pressure chronic ulcer of skin of other sites with fat layer exposed; E44.1 Mild protein-calorie malnutrition; F17.290 Nicotine dependence, other tobacco product, uncomplicated; Z68.20 Body mass index [BMI] 20.0-20.9, adult; Z86.73 Personal history of transient ischemic attack (TIA), and cerebral infarction without residual deficits; Z79.84 Long term (current) use of oral hypoglycemic drugs; Z79.82 Long term (current) use of aspirin ==

== ENCOUNTER 2021-05-17 02:55 | Inpatient (IN) | payer OTHER ==
[~2021-05-17] VITALS: Ht 188 cm; Wt 71.7 kg
[2021-05-17 02:56] VITALS: BP 161/78
[2021-05-17 03:20] LABS: ABSOLUTE BASOPHILS 0.1 thou/uL (0.0-0.2); ABSOLUTE EOSINOPHILS 0.1 thou/uL (0.0-0.7); ABSOLUTE LYMPHOCYTES 1.9 thou/uL (0.8-5.3); ABSOLUTE MONOCYTES 1.6 thou/uL (0.0-1.2); ABSOLUTE NEUTROPHILS 12.6 thou/uL (1.6-8.1); BASOPHILS 0.6 %; EOSINOPHILS 0.4 %; HEMATOCRIT 41.1 % (42.0-52.0); HEMOGLOBIN 13.5 gm/dL (14.0-18.0); LYMPHOCYTES 11.4 %; MCH 27.7 pg (26.0-34.0); MCHC 32.8 g/dL (28.0-37.0); MCV 84.3 fL (80.0-100.0); MONOCYTES 10.1 %; MPV 7.9 fl. (7.2-11.1); NUCLEATED RBCS 0 /100WBC; PLATELET COUNT* 617 thou/uL (150-400); POLYS 77.5 %; RBC 4.87 mil/uL (4.50-6.00); RDW-CV 15.3 % (10.5-14.5); WBC 16.2 thou/uL (4.0-11.0)
[2021-05-17 03:26] LABS: CALCIUM 8.7 mg/dL (8.5-10.1); POTASSIUM 4.8 mmol/L (3.5-5.1)
[2021-05-17 03:31] LABS: ALBUMIN 2.7 g/dL (3.4-5.0); MAGNESIUM 1.6 mg/dL (1.8-2.4); TOTAL BILIRUBIN 0.5 mg/dL (<0.1-1.0); TOTAL PROTEIN 7.7 g/dL (6.4-8.2)
[2021-05-17] MEDS ORDERED: LOPRESSOR50 MG PO (03:31)
[2021-05-17] MEDS ORDERED: GLIPIZIDE 10 MG10 MG PO (03:32)
[2021-05-17] MEDS ORDERED: LISINOPRIL-HCT1 EAC1 PO (03:32)
[2021-05-17] MEDS ORDERED: ASA81BEC PO (03:33)
[2021-05-17] MEDS ORDERED: PLAVIX 75 MG TA75 MG PO (03:33)
[2021-05-17] MEDS ORDERED: LIPITOR40 MG PO (03:33)
[2021-05-17] MEDS ORDERED: METFORMIN HCL500 M3 PO (03:33)
[2021-05-17 05:16] LABS: URINE BILIRUBIN NEGATIVE (Negative); URINE BLOOD TRACE (Negative); URINE CLARITY CLEAR; URINE COLOR YELLOW; URINE GLUCOSE-RANDOM 3+ (Negative); URINE KETONES NEGATIVE (Negative); URINE LEUKOCYTES-REFLEX NEGATIVE (Negative); URINE NITRITE-REFLEX NEGATIVE (Negative); URINE PROTEIN NEGATIVE (Negative); URINE UROBILINOGEN 0.2 E.U./dl (0.2-1.0)
[2021-05-17 10:20] VITALS: BP 150/70
--- NOTE | 2021-05-17 12:34 | EKG ---
[place] [address] ELECTROCARDIOGRAM REPORT Name: CHARLEY MUÑOZ Room: [address]#: [id number] Admission: 05/17/21 Attend Phys: Robin Webb, Discharge: 05/24/21 Date of : 46 Date of Service: 05/17/21301 Report #: [id number] THIS REPORT FOR: //name// [facility] ED Test Date: 2021-05-17 Test Time: 03:02:40 Pat Name: CHARLEY MUÑOZ Department: Room: [facility] Gender: M Country Manager: ONIEL : 1950 Requested By: Leigh Doyle Order Number: [id number] MD: Yong Chamberlain Measurements Intervals Hanna Rate: 110 P: 31 PA: 155 QRS: 25 QRSD: 86 T: 71 QT: 339 QTc: 459 Interpretive Statements Sinus tachycardia Artifact in lead(s) I,II,III,aVL,V1,V2,V3,V4,V5,V6 No previous ECG available for comparison Electronically Signed On 05-17-2021 12:33:57 TESTER COMPRESSED GASES by Yong Chamberlain [email or web address] <ELECTRONICALLY SIGNED> By: Yong Chamberlain MD, FACC 05/17/21 1233 1 030 Yong Chamberlain MD, FACC /EPI
[2021-05-17 14:50] LABS: INFLUENZA A ANTIGEN Negative (Negative); INFLUENZA B ANTIGEN Negative (Negative)
[2021-05-17 21:28] VITALS: BP 110/54
[2021-05-17 22:00] VITALS: BP 157/76
[2021-05-18] VITALS: BP 83/43
[2021-05-18 04:00] VITALS: BP 132/69
[2021-05-18 05:48] LABS: HEMATOCRIT 35.5 % (42.0-52.0); MCH 27.5 pg (26.0-34.0); MCHC 32.3 g/dL (28.0-37.0); MCV 85.1 fL (80.0-100.0); MPV 7.7 fl. (7.2-11.1); RBC 4.17 mil/uL (4.50-6.00); RDW-CV 15.6 % (10.5-14.5); WBC 13.1 thou/uL (4.0-11.0)
[2021-05-18 05:53] LABS: HEMOGLOBIN 11.5 gm/dL (14.0-18.0)
[2021-05-18 07:20] LABS: CREATININE 0.8 mg/dL (0.6-1.3); MAGNESIUM 1.7 mg/dL (1.8-2.4); POTASSIUM 3.4 mmol/L (3.5-5.1); TOTAL BILIRUBIN 0.4 mg/dL (<0.1-1.0)
[2021-05-18 09:00] VITALS: BP 154/77
[2021-05-18 18:23] VITALS: BP 140/69
[2021-05-18 19:55] VITALS: BP 90/41
[2021-05-19] VITALS: BP 142/69
[2021-05-19 04:00] VITALS: BP 150/74
[2021-05-19 08:00] VITALS: BP 157/79
[2021-05-19 09:47] LABS: HEMATOCRIT 32.2 % (42.0-52.0); HEMOGLOBIN 10.9 gm/dL (14.0-18.0); MCH 28.2 pg (26.0-34.0); MCHC 33.7 g/dL (28.0-37.0); MCV 83.7 fL (80.0-100.0); MPV 7.7 fl. (7.2-11.1); RBC 3.85 mil/uL (4.50-6.00); RDW-CV 15.5 % (10.5-14.5); WBC 10.2 thou/uL (4.0-11.0)
[2021-05-19 10:04] LABS: ALBUMIN 1.7 g/dL (3.4-5.0); CALCIUM 7.5 mg/dL (8.5-10.1); CREATININE 1.1 mg/dL (0.6-1.3); POTASSIUM 3.4 mmol/L (3.5-5.1); TOTAL BILIRUBIN 0.4 mg/dL (<0.1-1.0); TOTAL PROTEIN 5.5 g/dL (6.4-8.2)
[2021-05-19 12:03] VITALS: BP 104/50; BP 112/83
[2021-05-19 16:00] VITALS: BP 98/60
[2021-05-19 20:30] VITALS: BP 137/69
[2021-05-20] VITALS: BP 135/68
[2021-05-20 04:00] VITALS: BP 127/77
[2021-05-20 04:22] LABS: MCH 27.9 pg (26.0-34.0); MCHC 33.4 g/dL (28.0-37.0); MCV 83.6 fL (80.0-100.0); MPV 7.8 fl. (7.2-11.1); RBC 3.94 mil/uL (4.50-6.00); RDW-CV 15.6 % (10.5-14.5); WBC 10.5 thou/uL (4.0-11.0)
[2021-05-20 04:42] LABS: CALCIUM 7.4 mg/dL (8.5-10.1); CREATININE 0.7 mg/dL (0.6-1.3)
[2021-05-20 06:37] LABS: POTASSIUM 2.9 mmol/L (3.5-5.1)
[2021-05-20 08:00] VITALS: BP 124/66
[2021-05-20 12:32] VITALS: BP 123/67
[2021-05-20 15:55] VITALS: BP 134/64
[2021-05-20 20:30] VITALS: BP 91/45
[2021-05-21 00:17] VITALS: BP 108/59
[2021-05-21 04:00] VITALS: BP 128/50
[2021-05-21 04:24] LABS: HEMATOCRIT 33.7 % (42.0-52.0); HEMOGLOBIN 11.2 gm/dL (14.0-18.0); MCH 27.9 pg (26.0-34.0); MCHC 33.4 g/dL (28.0-37.0); MCV 83.7 fL (80.0-100.0); MPV 7.7 fl. (7.2-11.1); RBC 4.02 mil/uL (4.50-6.00); RDW-CV 15.9 % (10.5-14.5); WBC 10.4 thou/uL (4.0-11.0)
[2021-05-21 04:39] LABS: CALCIUM 7.6 mg/dL (8.5-10.1); CREATININE 0.7 mg/dL (0.6-1.3); POTASSIUM 3.6 mmol/L (3.5-5.1)
[2021-05-21 08:00] VITALS: BP 112/56
[2021-05-21 11:30] VITALS: BP 101/54
[2021-05-21 15:27] VITALS: BP 115/57
[2021-05-21 20:00] VITALS: BP 120/63
[2021-05-22] VITALS: BP 129/72
[2021-05-22 04:00] VITALS: BP 123/64
[2021-05-22 05:14] LABS: ABSOLUTE BASOPHILS 0.1 thou/uL (0.0-0.2); ABSOLUTE EOSINOPHILS 0.1 thou/uL (0.0-0.7); ABSOLUTE LYMPHOCYTES 1.7 thou/uL (0.8-5.3); ABSOLUTE NEUTROPHILS 6.8 thou/uL (1.6-8.1); BASOPHILS 0.6 %; EOSINOPHILS 0.6 %; HEMATOCRIT 35.8 % (42.0-52.0); HEMOGLOBIN 11.6 gm/dL (14.0-18.0); MCHC 32.5 g/dL (28.0-37.0); MCV 83.1 fL (80.0-100.0); MONOCYTES 18.5 %; MPV 7.7 fl. (7.2-11.1); NUCLEATED RBCS 0 /100WBC; PLATELET COUNT* 407 thou/uL (150-400); POLYS 64.3 %; RBC 4.31 mil/uL (4.50-6.00); RDW-CV 15.7 % (10.5-14.5); WBC 10.6 thou/uL (4.0-11.0)
[2021-05-22 05:27] LABS: CALCIUM 7.9 mg/dL (8.5-10.1); CREATININE 0.6 mg/dL (0.6-1.3)
[2021-05-22 05:38] LABS: POTASSIUM 2.6 mmol/L (3.5-5.1)
[2021-05-22 08:00] VITALS: BP 147/74
[2021-05-22 12:49] VITALS: BP 133/76
[2021-05-22 15:00] VITALS: BP 133/76
--- NOTE | 2021-05-22 16:41 | TEE ---
[place] [address] TRANSESOPHAGEAL ECHOCARDIOGRAM Name: WANDACHARLEY Paco Room: [address]#: [id number] Admission: 05/17/21 Attend Phys: Robin Webb, Discharge: 05/24/21 Date of : 46 Date of Service: 05/22/21 1641 Report #: [id number] THIS REPORT FOR: cc: Gregory Hernandez MD, James MD Liston, Michael J. MD [facility] ~ APPROVED REPORT Study performed: 05/22/2021 15:38:50 EXAM: Comprehensive 2D, Doppler, and color-flow Echocardiogram Patient Location: In-Patient Room #: [facility] Status: routine BSA: 1.97 HR: 75 bpm BP: 143/71 mmHg Rhythm: NSR Other Information Study Quality: Good Indications bacteremia Echo Enhancing Agent Indication: Rule out Shunt Agent(s) / Amount(s) Used: Agitated Saline 10 cc Procedure After obtaining informed consent, patient underwent transesophageal echo in the [employer]. Type of Sedation : Conscious Sedation Sedation was administered by Nany Payne RN. Sedation start time: 1545 Case end Time: 1600 Sedation was achieved intravenously with: Versed (5) Transesophageal probe was inserted and advanced into esophagus without difficulty by Yong Chamberlain MD, FACC. Echo enhancement indication: R/O Septal defect. Echo enhancement agent administered: Agitated Saline The OLMAN was performed without complications. Throughout the procedure, the blood pressure, pulse oximetry, cardiac rhythm, and [place] [address] TRANSESOPHAGEAL ECHOCARDIOGRAM Name: CHARLEY MUÑOZ Room: [address] IN .R.#: [id number] Admission: 05/17/21 Attend Phys: Robin Webb, Discharge: Date of : 46 Date of Service: 05/22/21 1641 Report #: [id number] The patient tolerated the procedure without adverse effects. Recovery from conscious sedation was uneventful and vital signs were stable. Left Ventricle The left ventricle is normal size. There is normal LV segmental wall motion. There is normal left ventricular wall thickness. Left ventricular systolic function is normal. LVEF is 50-55%. Right Ventricle The right ventricle is normal size. The right ventricular systolic function is normal. Atria The left atrium size is normal. No thrombus is visualized in the left atrium or appendage. The interatrial septum is intact with no evidence for an atrial septal defect. The right atrium size is normal. Aortic Valve Moderate aortic valve sclerosis. Trace aortic regurgitation. There is no aortic valvular stenosis. Mitral Valve The mitral valve is normal in structure. Mild mitral regurgitation. No evidence of mitral valve stenosis. Tricuspid Valve The tricuspid valve is normal in structure. There is no tricuspid valve regurgitation noted. Pulmonic Valve The pulmonary valve is normal in structure. There is no pulmonic valvular regurgitation. Great Vessels The aortic root is normal in size. Pericardium There is no pericardial effusion. <Conclusion> The left ventricle is normal size. There is normal left ventricular wall thickness. Left ventricular systolic function is normal. LVEF is 50-55%. [place] [address] TRANSESOPHAGEAL ECHOCARDIOGRAM Name: CHARLEY MUÑOZ Room: [address] IN ..#: [id number] Admission: 05/17/21 Attend Phys: Robin Webb, Discharge: Date of : 46 Date of Service: 05/22/211640 Report #: [id number] There is normal LV segmental wall motion. No thrombus is visualized in the left atrium or appendage. Moderate aortic valve sclerosis. Trace aortic regurgitation. Mild mitral regurgitation. The interatrial septum is intact with no evidence for an atrial septal defect. No evidence of valvular vegetations. <ELECTRONICALLY SIGNED> By: Yong Chamberlain MD, FACC 05/22/211640 40 40 Yong Chamberlain MD, FACC /INF
[2021-05-22 20:12] VITALS: BP 132/60
[2021-05-23 01:59] VITALS: BP 135/66
[2021-05-23 04:53] LABS: ABSOLUTE BASOPHILS 0.1 thou/uL (0.0-0.2); ABSOLUTE EOSINOPHILS 0.1 thou/uL (0.0-0.7); ABSOLUTE MONOCYTES 1.6 thou/uL (0.0-1.2); BASOPHILS 0.7 %; EOSINOPHILS 0.9 %; HEMATOCRIT 34.9 % (42.0-52.0); HEMOGLOBIN 11.6 gm/dL (14.0-18.0); LYMPHOCYTES 20.6 %; MCH 27.5 pg (26.0-34.0); MCHC 33.2 g/dL (28.0-37.0); MONOCYTES 16.1 %; MPV 7.9 fl. (7.2-11.1); NUCLEATED RBCS 0 /100WBC; POLYS 61.7 %; RBC 4.21 mil/uL (4.50-6.00); RDW-CV 16.2 % (10.5-14.5); WBC 9.7 thou/uL (4.0-11.0)
[2021-05-23 05:31] LABS: CALCIUM 7.7 mg/dL (8.5-10.1); CREATININE 0.7 mg/dL (0.6-1.3); POTASSIUM 4.4 mmol/L (3.5-5.1)
[2021-05-23 05:45] LABS: PLATELET COUNT* 489 thou/uL (150-400)
[2021-05-23 07:33] LABS: ESR (SEDRATE) 56 mm/hr (0-20)
[2021-05-23 08:00] VITALS: BP 151/72
[2021-05-23 20:47] VITALS: BP 142/79
[2021-05-24] VITALS: BP 109/66
[2021-05-24 08:00] VITALS: BP 112/60
[2021-05-24] MEDS ORDERED: HYDROCHLOROTHIA25 M1 PO (10:31)
[2021-05-24] MEDS ORDERED: METRONIDAZOLE500 M4 PO (10:31)
[2021-05-24 12:01] VITALS: BP 112/60
[2021-05-24 14:45] VITALS: BP 110/62
== END 2021-05-24 17:00 | disposition home health service (06) | DRG 871 ==
LOC: M.ERS 02:55 → M.2W 05:47 → M.TBA-ER 05:47 → M.2W 22:00
PROVIDERS: Emergency Medicine; Family Medicine; Internal Medicine; Nurse Practitioner Family; Student in an Organized Health Care Education/Training Program; ADMIT Internal Medicine; ATTEND Internal Medicine
PROC: 02HV33Z Insertion of Infusion Device into Superior Vena Cava, Percutaneous Approach (ICD-10-PCS; principal; 2021-05-24)
DX: A40.8 Other streptococcal sepsis (principal); L89.154 Pressure ulcer of sacral region, stage 4; G92.8 Other toxic encephalopathy; E87.1 Hypo-osmolality and hyponatremia; E44.0 Moderate protein-calorie malnutrition; F17.210 Nicotine dependence, cigarettes, uncomplicated; E11.65 Type 2 diabetes mellitus with hyperglycemia; K21.9 Gastro-esophageal reflux disease without esophagitis; I71.4 Abdominal aortic aneurysm, without rupture; K44.9 Diaphragmatic hernia without obstruction or gangrene; Z20.822 Contact with and (suspected) exposure to COVID-19; S50.812A Abrasion of left forearm, initial encounter; S60.511A Abrasion of right hand, initial encounter; W18.39XA Other fall on same level, initial encounter; Y93.89 Activity, other specified; Y92.89 Other specified places as the place of occurrence of the external cause; Y99.8 Other external cause status; Z79.82 Long term (current) use of aspirin; Z79.899 Other long term (current) drug therapy; Z88.6 Allergy status to analgesic agent; Z88.8 Allergy status to other drugs, medicaments and biological substances; Z86.73 Personal history of transient ischemic attack (TIA), and cerebral infarction without residual deficits; Z68.20 Body mass index [BMI] 20.0-20.9, adult

== ENCOUNTER → 2021-06-07 | Outpatient (CLI) | payer OTHER ==
[~2021-06-07] MED LIST changes: +ASA81BEC PO; +LIPITOR40 MG PO; +LOPRESSOR50 MG PO; +METRONIDAZOLE500 M4 PO; +PLAVIX 75 MG TA75 MG PO
== END ==
LOC: M.WC 09:28
PROVIDERS: ATTEND Family Medicine
DX: E11.622 Type 2 diabetes mellitus with other skin ulcer (principal); L89.154 Pressure ulcer of sacral region, stage 4; L98.492 Non-pressure chronic ulcer of skin of other sites with fat layer exposed; E44.1 Mild protein-calorie malnutrition; F17.290 Nicotine dependence, other tobacco product, uncomplicated; F32.9 Major depressive disorder, single episode, unspecified; Z68.20 Body mass index [BMI] 20.0-20.9, adult; Z86.73 Personal history of transient ischemic attack (TIA), and cerebral infarction without residual deficits; Z79.84 Long term (current) use of oral hypoglycemic drugs; Z79.82 Long term (current) use of aspirin

== ENCOUNTER → 2021-06-22 | Outpatient (CLI) | payer OTHER | LOC: M.WC 10:16 | PROVIDERS: ATTEND Family Medicine | DX: E11.622 Type 2 diabetes mellitus with other skin ulcer (principal); L89.154 Pressure ulcer of sacral region, stage 4; L98.492 Non-pressure chronic ulcer of skin of other sites with fat layer exposed; E44.1 Mild protein-calorie malnutrition; F17.290 Nicotine dependence, other tobacco product, uncomplicated; F32.9 Major depressive disorder, single episode, unspecified; Z68.20 Body mass index [BMI] 20.0-20.9, adult; Z86.73 Personal history of transient ischemic attack (TIA), and cerebral infarction without residual deficits; Z79.84 Long term (current) use of oral hypoglycemic drugs; Z79.82 Long term (current) use of aspirin ==